=== PATIENT | female | born 1965 | race Caucasian/White ===

== ENCOUNTER → 2017-02-04 | Outpatient (CLI) | payer OTHER ==
[2017-02-04 13:34] LABS: BLOOD UREA NITROGEN 9 mg/dl (7-18); BUN/CREATININE RATIO 12.6 (10-20); CALCIUM 8.4 mg/dl (8.5-10.1); CARBON DIOXIDE 27 mmol/L (21-32); CHLORIDE 104 mmol/L (98-107); CREATININE 0.73 mg/dl (0.60-1.20); GLUCOSE 96 mg/dl (70-99); POTASSIUM 4.2 mmol/L (3.5-5.1); SODIUM 139 mmol/L (136-145)
[2017-02-04 13:37] LABS: CHOLESTEROL 226 mg/dl (0-200); HDL CHOLESTEROL 75 mg/dl; LDL CHOLESTEROL CALCULATED 123 mg/dl; TRIGLYCERIDES 138 mg/dl (0-150); VERY LOW DENSITY LIPOPROT CALC 28 mg/dl
== END | disposition home or self-care (01) ==
LOC: C.LABPVFM 08:28
PROVIDERS: ATTEND Family Medicine
DX: Z13.1 Encounter for screening for diabetes mellitus (principal); E78.5 Hyperlipidemia, unspecified

== ENCOUNTER → 2017-07-26 | Outpatient (CLI) | payer OTHER ==
--- NOTE | 2017-07-26 15:48 | MAMMOGRAPHY REPORT ---
BILATERAL DIGITAL SCREENING MAMMOGRAM TOMOSYNTHESIS WITH CAD: 07/26/2017 CLINICAL HISTORY: Routine screening. Patient has no complaints. TECHNIQUE: Breast tomosynthesis in addition to standard 2D mammography was performed. Current study was also evaluated with a Computer Aided Detection (CAD) system. COMPARISON: Comparison is made to exams dated: 07/25/2016 mammogram, 12/23/2014 ultrasound, 08/25/2014 m ammogram, 08/25/2014 ultrasound, 08/09/2014 mammogram, and 08/07/2013 mammogram - [facility]. BREAST COMPOSITION: There are scattered areas of fibroglandular density in both breasts. FINDINGS: No suspicious masses, calcifications, or areas of architectural distortion are noted in ei ther breast. There has been no significant interval change compared to prior exams. IMPRESSION: ACR BI-RADS CATEGORY 1: NEGATIVE There is no mammographic evidence of malignancy. A 1 year screening mammogram is recommended. The pa tient will receive written notification of the results. Approximately 10% of breast cancers are not detected with mammography. A negative mammographic report should not delay biopsy if a clinically suggestive mass is present. Alana Mejia M.D. /:07/26/2017 08:46:24 Machine Set Up Technician: Franchesca Pan, [facility] letter sent: Normal 1/2 BI-RADS Code: ACR BI-RADS Category 1: Negative
== END | disposition home or self-care (01) ==
LOC: C.MAMM 08:18
PROVIDERS: ATTEND Obstetrics & Gynecology
DX: Z12.31 Encounter for screening mammogram for malignant neoplasm of breast (principal)

== ENCOUNTER 2019-06-18 16:10 | Inpatient (IN) ==
[2019-06-18] MEDS ORDERED: NITROGLYCERIN 2% OINTMENT 30GM TUBE EXT STA (16:30)
--- NOTE | 2019-06-18 16:48 | XRay Report ---
XR chest 1V portable CLINICAL HISTORY: Chest pain. COMPARISON STUDY: Chest CT May 05, 2019. FINDINGS: Lung volumes are normal. Lungs are clear. There is no pneumothorax or pleural effusion. Car diac size is normal. Mediastinal contours are normal. There is no evidence for pulmonary edema. IMPRESSION: No acute cardiopulmonary findings. Electronically signed by: Dimitri Ortega M.D. 06/18/2019 4:46 PM
[2019-06-18 17:03] LABS: Basophils # (auto) 0.03 K/uL (0-0.2); Basophils % (auto) 0.5 %; Eosinophils # (auto) 0.13 K/uL (0-0.5); Hematocrit (blood only) 37.3 % (37-47); Hemoglobin 13.3 g/dL (12.0-16.0); Lymphocytes % (auto) 32.7 %; Mean Corpuscular Hemoglobin 31.6 pg (25-34); Mean Corpuscular Hgb Conc 35.7 g/dL (32-36); Mean Corpuscular Volume 88.6 fL (80-100); Mean Platelet Volume 9.4 fL (7.4-10.4); Monocytes # (auto) 0.39 K/uL (0.11-0.59); Monocytes % (auto) 6.1 %; Neutrophils # (auto) 3.78 K/uL (1.4-6.5); Neutrophils % (auto) 58.7 %; Platelet Count 271 K/uL (130-400); RDW Coefficient of Variation 12.4 % (11.5-14.5); RDW Standard Deviation 39.3 fL (36.4-46.3); Red Blood Count 4.21 M/uL (4.2-5.4); White Blood Count 6.43 K/uL (4.8-10.8)
[2019-06-18 17:20] LABS: Albumin Level 4.3 gm/dl (3.4-5.0); BUN Creatinine Ratio 18.4 (10-20); Calcium 9.2 mg/dl (8.5-10.1); Creatinine Clr Calc Pharmacy 72.4 ml/min; Est GFR (African American) 99.8; Est GFR (Non-African American) 86.1; Potassium 3.5 mmol/L (3.5-5.1)
[2019-06-18 17:22] LABS: Albumin Globulin Ratio 1.3 (0.9-2); Bilirubin,Total 0.4 mg/dl (0.2-1); Globulin 3.3 gm/dl (2.5-4.0); Total Protein 7.6 gm/dl (6.4-8.2)
[2019-06-18 17:33] LABS: Partial Thromboplastin Ratio 0.9; Partial Thromboplastin Time 24.2 Seconds (21.0-31.0); Prothrombin Time 10.4 Seconds (9.0-12.0)
--- NOTE | 2019-06-18 17:55 | Ultrasound Report ---
RIGHT LOWER EXTREMITY VENOUS DOPPLER CLINICAL HISTORY: Right thigh pain. COMPARISON STUDY: No previous studies for comparison. TECHNIQUE: Sonography of the deep venous system of the right lower extremity was performed. Compress ion and augmentation were evaluated. FINDINGS: The right common femoral, superficial femoral and popliteal veins were compressible. Augme ntation was normal. Flow was shown within the deep calf vessels. IMPRESSION: No evidence of deep venous thrombus within the right lower extremity. Electronically signed by: Dimitri Ortega M.D. 06/18/2019 5:53 PM
[2019-06-18] MEDS ORDERED: Heparin IV Low Dose WITH Bolus IV STA (18:14)
[2019-06-18] MEDS ORDERED: HEPARIN SODIUM/DEXTROSE 25,000 UNITS/500 ML BAG IV SCH (18:15)
[2019-06-18] MEDS ORDERED: HEPARIN SOD 5,000 UNIT/0.5 ML VIAL ONE (18:30)
[2019-06-18] MEDS ORDERED: Heparin IV BOLUS 0 units in Syringe 0 mL IV ONE (19:00)
--- NOTE | 2019-06-18 19:44 | History & Physical Report ---
Date of Service June 18, 2019 Assessment & Plan (1) Chest pain: Concerning for ACS given recent STEMI, may be a stent issue ED spoke with Dr. Robles who recs for heparin drip and cath in AM Trop neg x1, serials pending EKG with T wave inversions Holding plavix Recent CTA neg for PE LE US in ED neg for DVT ECHO just done yesterday, will not repeat at this time Noted for CHF, continue lasix (2) GERD (gastroesophageal reflux disease): No hx of GERD, was started on ranitidine for chest pain earlier this summer Will d/c this medication (3) DVT prophylaxis: SCDs, heparin drip History of Present Illness Primary Care Provider: Luis Fernando Arenas, DO 53 y/o F c/o chest pain. Pt states she has been having chest pain all summer. She was started on ranitidine initially, however this was not helpful. Her chest pain continued to worsen and she ultimately ended up admitted to [place] for a cath for a STEMI on 06/06. She had a stent placed in her LAD. She felt great after this. She was d/c'd on 06/08 and did well until 06/12 when she started to have ZELAYA. This progressed to any exertion and on 06/15 she started to have chest pain again. This pain was substernal as her prior chest pain had been, but it was coming and going spontaneously whereas her other chest pain ended up being constant. It is stabbing in nature and nonradiating. She was seen in the ED at [facility]. CTA and cardiac work up was done, all of which were neg. 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 She had an ECHO in the office which showed new CHF. She was started on lasix yesterday for this. She has continued to have sx that are no worse, but no better. Pt denies fever, abd pain, v/c/d, LE pain or swelling. She had some double vision today and felt like "my head was in a cloud, like I had a head cold". She states she was nauseated in the ED today when she had to lie flat for LE US, but no other nausea. Allergies Allergy/AdvReac Type Severity Reaction Status Date / Time pineapple Allergy Severe throat Verified 05/12/19 08:28 swells up naproxen [From Aleve] Allergy Mild throat Unverified 05/12/19 08:28 swells/hives Penicillins Allergy Mild Hives Unverified 05/12/19 08:28 Home Medications Home Medications Medication Instructions Recorded Confirmed Type atorvastatin 80 mg PO HS 06/18/19 06/18/19 History clopidogrel 75 mg PO QAM 06/18/19 06/18/19 History coenzyme Q10 [CoQ-10] 30 mg PO HS 06/18/19 06/18/19 History furosemide 40 mg PO DAILY 06/18/19 06/18/19 History lisinopril 5 mg PO QAM 06/18/19 06/18/19 History metoprolol tartrate 25 mg PO BID 06/18/19 06/18/19 History nitroglycerin 0.4 mg SUBLINGUAL UD 06/18/19 06/18/19 History omega 1-[id number]-[id number]-fish oil [Fish Oil] 2 cap PO DAILY 06/18/19 06/18/19 History ranitidine HCl 150 mg PO QAM 06/18/19 06/18/19 History Past Med/Surg History Medical History Urethral diverticulum Excision of Urethral Diverticulum Dyslipidemia (Chronic) GERD (gastroesophageal reflux disease) (Chronic) Surgical History Hx of lithotripsy 1993 Status post hysteroscopic ablation of endometrium 08/19/[address] Gee History of (Resolved) Family History Father Family history of cardiac disorder Myocardial infarction Mother Family history of breast cancer Family history of cardiac disorder Myocardial infarction Brother Family history of alcohol abuse Family history of cardiac disorder Family history of depression Grandmother (Maternal) Family history of breast cancer Other Coronary heart disease Heart disease Hypertension Social History Preferred Language: Thai Communication Ability: Effective Hearing Ability: Normal marital status: Current Living Situation: Spouse current occupational status: employed Feels Safe at Home: Yes Smoking Status: Never smoker Hx Alcohol Use: Yes (2 glasses of wine most nights, however only twice since recent issues) Hx Substance Use: No Review of Systems Review of Systems: Pertinent positives and negatives reviewed in HPI--all others negative Physical Exam Constitutional: WD/WN, vitals as above Eyes: normal visual berry by confrontation and + anicteric sclerae Neck: normal visual inspection and trachea midline Respiratory: normal respiratory effort, lungs clear to auscultation Cardiovascular: Rate/Rhythm: regular rate and regular rhythm Gastrointestinal (Abdomen): Inspection/Auscultation: abdomen not distended Percussion/Palpation: abdomen soft; abdomen nontender Musculoskeletal: Head/Neck/Chest: normocephalic and head atraumatic negative for edema, peripheral pulses intact Skin: no rashes, warm and dry Neurologic: awake; not confused Speech / Cognition: normal speech Psychiatric: A+Ox3, euthymic affect Results & Data Vital Signs (Past 12 Hours) Vital Signs Temp Pulse Pulse Resp BP BP Pulse Ox 06/18/19 18:38 66 18 94/50 L 97 06/18/19 17:00 66 18 100/61 98 06/18/19 16:13 36.7 C 71 20 121/77 99 Diagnostic Findings CXR: neg for acute R LE US: neg for DVT ECG Findings: + T-wave inversion Code Status & VTE Plan Code Status Full code VTE Prophylaxis Plan VTE Prophylaxis will be ordered: Yes PG Care Time/CCT Total # of Minutes Spent Total Time Spent with Patient: Total time spent is greater than 50% in coordination of care (as documented) at patient's floor/unit and/or counseling patient:
[2019-06-18] MEDS ORDERED: fentaNYL citrate 100 MCG/2 ML VIAL IV STA (20:17)
[2019-06-18] MEDS ORDERED: ONDANSETRON INJ 2 MG/ML 2 ML VIAL IV STA (20:17)
[2019-06-18] MEDS ORDERED: SODIUM CHLORIDE 0.9% 250 ML IV ONE (20:17)
[2019-06-18 20:41] LABS: Creatine Kinase 83 U/L (26-192); Troponin I < 0.015 ng/ml (0-0.045)
[2019-06-18] MEDS ORDERED: NITROGLYCERIN SL 0.4 MG/TAB TAB SL SCH (21:23)
[2019-06-18] MEDS ORDERED: ALUMINUM/MAGNESIUM SUSP 18 ML, LIDOCAINE HCL VISCOUS 2% 6 ML, BARCODE IDENTIFIER 1 EA PO ONE (21:23)
[2019-06-18] MEDS ORDERED: ONDANSETRON INJ 2 MG/ML 2 ML VIAL IV PRN (21:23)
[2019-06-18] MEDS ORDERED: MAGNESIUM HYDROXIDE SUSP 30 ML UDC PO PRN (21:23)
--- NOTE | 2019-06-18 21:54 | Emergency Department Note ---
Entered by Nadiya Hawk acting as a scribe for History of Present Illness General Chief complaint: Chest Pain Stated complaint: CHEST PAIN, PRESSURE, TINGLING HANDS, SOB- <3 HX History of Present Illness Onset (ago): day(s) 3 Location: chest Radiation: other (Left shoulder) Pain Consistency: + constant Maximum Pain Intensity: 4 Current Pain Intensity: 4 Relieved By: + none Exacerbated By: + other (Exertion) Associated symptoms: + cough (+cold symptoms) and + other (+numbness/tingling in bilateral arms) Treatments prior to arrival: none The patient is a 53 year old female who presents to the ED with complaints of chest pain for the past few days. She rates her pain as a 4/10 in severity and states the pain feels sharp in nature. The pain has occasionally radiated into her left shoulder. She complains of shortness of breath with exertion and notes her pain is worse with exertion. She has also experienced tingling in both [place] nds. She experienced an ME 12 days ago and had 1 stent placed in the LAD at [facility]. 4 days ago, she was readmitted to the hospital for a possible PE. She had a chest CT that was negative for a clot. She had chest pain yesterday and had an echocardiogram at her doctor's office. She was found to be in heart failure and states she was started on Lasix. The patient denies recent cough and cold symptoms. She developed chest pain today and was advised by her finish filer to go to nearest hospital. Home Medications Home Medications Medication Instructions Recorded Confirmed Type atorvastatin 80 mg PO HS 06/18/19 06/18/19 History clopidogrel 75 mg PO QAM 06/18/19 06/18/19 History coenzyme Q10 [CoQ-10] 30 mg PO HS 06/18/19 06/18/19 History furosemide 40 mg PO DAILY 06/18/19 06/18/19 History lisinopril 5 mg PO QAM 06/18/19 06/18/19 History metoprolol tartrate 25 mg PO BID 06/18/19 06/18/19 History nitroglycerin 0.4 mg SUBLINGUAL UD 06/18/19 06/18/19 History omega [id number] oil [Fish Oil] 2 cap PO DAILY 06/18/19 06/18/19 History ranitidine HCl 150 mg PO QAM 06/18/19 06/18/19 History Allergies Allergy/AdvReac Type Severity Reaction Status Date / Time pineapple Allergy Severe throat Verified 05/12/19 08:28 swells up naproxen [From Aleve] Allergy Mild throat Unverified 05/12/19 08:28 swells/hives Penicillins Allergy Mild Hives Unverified 05/12/19 08:28 Past Med/Surg History Medical History Urethral diverticulum Excision of Urethral Diverticulum Dyslipidemia (Chronic) GERD (gastroesophageal reflux disease) (Chronic) Surgical History Hx of lithotripsy 1993 Status post hysteroscopic ablation of endometrium 08/19/[address] 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 and A total of 10 systems reviewed and were otherwise negative Physical Exam Vital Signs Vital Signs - 24 hr 06/18/19 16:13 06/18/19 17:00 06/18/19 17:16 Temperature 36.7 C Temperature Source Oral Sepsis Recent Fever Within 48 Hours No Sepsis New/Unexplained Change in Mental Status No Sepsis Action Taken by Nursing No Action Required Pulse Rate 71 60 60 Pulse Rate [Apical] 66 Pulse Rate from SpO2 Sensor 60 59 L Pulse Rhythm Regular Pulse Rhythm [Apical] Regular Pulse Strength Normal Respiratory Rate 20 19 20 Respiratory Effort / Characteristics Non-Labored Spontaneous Non-Labored Spontaneous Respiratory Depth Normal Normal Respiratory Pattern Regular Regular Blood Pressure 121/77 100/61 Blood Pressure [Left Arm] 100/61 Blood Pressure Mean 91 74 Blood Pressure Mean [Left Arm] 74 Blood Pressure Position Sitting Pulse Oximetry 99 100 99 Oxygen Delivery Method Room Air Room Air 06/18/19 17:20 06/18/19 18:00 06/18/19 18:10 Temperature Temperature Source Sepsis Recent Fever Within 48 Hours Sepsis New/Unexplained Change in Mental Status Sepsis Action Taken by Nursing Pulse Rate 64 67 69 Pulse Rate [Apical] Pulse Rate from SpO2 Sensor 63 Pulse Rhythm Pulse Rhythm [Apical] Pulse Strength Respiratory Rate 15 12 13 Respiratory Effort / Characteristics Respiratory Depth Respiratory Pattern Blood Pressure Blood Pressure [Left Arm] Blood Pressure Mean Blood Pressure Mean [Left Arm] Blood Pressure Position Pulse Oximetry 99 Oxygen Delivery Method 06/18/19 18:20 06/18/19 18:30 06/18/19 18:38 Temperature Temperature Source Sepsis Recent Fever Within 48 Hours Sepsis New/Unexplained Change in Mental Status Sepsis Action Taken by Nursing Pulse Rate 72 61 67 Pulse Rate [Apical] 66 Pulse Rate from SpO2 Sensor 66 Pulse Rhythm Pulse Rhythm [Apical] Regular Pulse Strength Respiratory Rate 18 19 14 Respiratory Effort / Characteristics Non-Labored Spontaneous Respiratory Depth Normal Respiratory Pattern Regular Blood Pressure 94/50 L Blood Pressure [Left Arm] 94/50 L Blood Pressure Mean 64 Blood Pressure Mean [Left Arm] 64 Blood Pressure Position Pulse Oximetry 97 Oxygen Delivery Method Room Air 06/18/19 18:40 06/18/19 18:50 06/18/19 19:00 Temperature Temperature Source Sepsis Recent Fever Within 48 Hours Sepsis New/Unexplained Change in Mental Status Sepsis Action Taken by Nursing Pulse Rate 70 64 70 Pulse Rate [Apical] Pulse Rate from SpO2 Sensor 71 64 71 Pulse Rhythm Pulse Rhythm [Apical] Pulse Strength Respiratory Rate 12 14 15 Respiratory Effort / Characteristics Respiratory Depth Respiratory Pattern Blood Pressure 90/65 L Blood Pressure [Left Arm] Blood Pressure Mean 73 Blood Pressure Mean [Left Arm] Blood Pressure Position Pulse Oximetry 98 98 98 Oxygen Delivery Method 06/18/19 19:10 06/18/19 19:20 06/18/19 19:30 Temperature Temperature Source Sepsis Recent Fever Within 48 Hours Sepsis New/Unexplained Change in Mental Status Sepsis Action Taken by Nursing Pulse Rate 66 73 65 Pulse Rate [Apical] Pulse Rate from SpO2 Sensor 68 71 65 Pulse Rhythm Pulse Rhythm [Apical] Pulse Strength Respiratory Rate 14 15 15 Respiratory Effort / Characteristics Respiratory Depth Respiratory Pattern Blood Pressure 94/65 L Blood Pressure [Left Arm] Blood Pressure Mean 74 Blood Pressure Mean [Left Arm] Blood Pressure Position Pulse Oximetry 98 98 97 Oxygen Delivery Method Constitutional: Vital signs reviewed. Eyes: Pupils are equal round reactive to light. Conjunctiva are noninjected. ENT: Pharynx is clear without erythema or exudate. Mucous membranes are moist. Neck supple without meningeal signs. Respiratory: Clear to auscultation bilaterally. Breath sounds are equal bilaterally. Cardiovascular: Regular rate and rhythm. No rubs or gallops. GI: Soft, nondistended and nontender. Bowel sounds are present. Musculoskeletal: No peripheral edema. No lower extremity tenderness. Integumentary: No cyanosis. Neurological: The patient is awake and alert. No focal deficits. Psychiatric: Normal affect. Course 162: The patient was evaluated in room B10 and a complete history and physical were performed. 1705: I reevaluated the patient. She is still having mild chest discomfort and has not received Nitro yet. A Troponin is pending. 1735: I received reports from [place] from 06/06. The cardiac catheterization showed normal coronary arteries except the LAD that showed enlarged thrombus that was stented. 1808: I reevaluated the patient. She is not having any chest pain at the moment. 1809: I discussed the patients case with Dr. Hong, [facility] Cardiology. He recommends she be placed on Heparin and she will most likely be catheterized tomorrow. 1810: I reevaluated the patient. She is resting comfortably. I discussed her results and my recommendation she remain in the hospital for further evaluation and management and she is agreeable with the plan. 1817: I discussed the patients case with Dr. Navarrete, [facility] Hospitalist. The patient will be further evaluated. 2014: I reevaluated the patient. She states she felt lightheaded. Her pressure was 85 systolic, a repeat pressure is 105. She is experiencing chest pressure that she rates as a 4/10. I repeated an EKG that shows a normal sinus rhythm, rate of 66, no PVC and persistent T-wave inversions. I spoke to Dr. Rock. She is assessing the patient now. She is requesting Fentanyl and Zofran and repeat Cardiac biomarkers. The patient will be taken upstairs. Consultations Consultation #1: I discussed the patients case with Dr. Hong, [facility] Cardiology. He recommends she be placed on Heparin and she will most likely be catheterized tomorrow. Time: 18:09 Consultation #2: I discussed the patients case with Dr. Navarrete, [facility] Hospitalist. The patient will be further evaluated Time: 18:17 Administered Medications Heparin Sodium/Dextrose (Heparin Sodium/Dextrose) 25,000 units in 500 mls @ 13 mls/hr IV .Q24H [place]; Protocol Stop: 07/18/19 18:14 Last Admin: 06/18/19 18:33 Dose: 650 units/hr, 13 mls/hr Documented by: [id number] Cosigned by: [id number] Discontinued Medications Fentanyl Citrate (Fentanyl Citrate) 25 mcg IV NOW STA Stop: 06/18/19 20:18 Last Admin: 06/18/19 20:34 Dose: 25 mcg Documented by: [id number] Heparin Sodium (Porcine) (Heparin Sodium (Porcine)) Confirm Administered Dose 5,000 units .ROUTE .STK-MED ONE Stop: 06/18/19 18:31 Last Admin: 06/18/19 18:32 Dose: 3,000 units Documented by: [id number] Cosigned by: [id number] Heparin Sodium/Dextrose () 1 ea IV NOW STA; Protocol Stop: 06/18/19 18:15 Last Admin: 06/18/19 18:33 Dose: Not Given Documented by: [id number] Heparin Sodium (Porcine) 3,000 (units/ Syringe) 3 mls @ 10 mls/min IV NOW ONE Stop: 06/18/19 19:01 Last Admin: 06/18/19 18:55 Dose: Not Given Documented by: [id number] Sodium Chloride (Nss) 250 mls @ 999 mls/hr IV .Q16M ONE Stop: 06/18/19 20:32 Last Infusion: 06/18/19 20:52 Dose: 0 mls/hr Documented by: [id number] Admin: 06/18/19 20:34 Dose: 999 mls/hr Documented by: [id number] Nitroglycerin (Nitro-Bid 2%) 0.5 inch EXT NOW STA Stop: 06/18/19 16:31 Last Admin: 06/18/19 17:14 Dose: 0.5 inch Documented by: [id number] Ondansetron HCl (Zofran) 4 mg IV NOW STA Stop: 06/18/19 20:18 Last Admin: 06/18/19 20:34 Dose: 4 mg Documented by: [id number] Medical Decision Making Differential Diagnosis The differential diagnoses considered include unstable angina, ME, PE, pleurisy, pericarditis, Татьяна syndrome. Medical Records Attestation: I reviewed the patient's medical records. I did perform a limited focused review of portions of the patient's old chart on the electronic medical record. The patient was seen by her PCP for chest pain in April of 2019 and had a negative stress test. Home Medications Current Medication List: was personally reviewed by me Laboratory Data Attestation: I reviewed the patient's lab results. Result diagrams: 06/18/19 16:49 06/18/19 16:49 Lab Results 06/18/19 06/18/19 06/18/19 Range/Units 16:49 16:49 16:49 WBC 6.43 (4.8-10.8) K/uL RBC 4.21 (4.2-5.4) M/uL Hgb 13.3 (12.0-16.0) g/dL Hct 37.3 (37-47) % MCV 88.6 (80-100) fL MCH 31.6 (25-34) pg MCHC 35.7 (32-36) g/dL RDW Std Deviation 39.3 (36.4-46.3) fL RDW Coeff of Lalo 12.4 (11.5-14.5) % Plt Count 271 (130-400) K/uL MPV 9.4 (7.4-10.4) fL Immature Gran % (Auto) 0.0 % Neut % (Auto) 58.7 % Lymph % (Auto) 32.7 % Bennett % (Auto) 6.1 % Eos % (Auto) 2.0 % Baso % (Auto) 0.5 % Immature Gran # (Auto) 0.00 (0.00-0.02) K/uL Neut # (Auto) 3.78 (1.4-6.5) K/uL Lymph # (Auto) 2.10 (1.2-3.4) K/uL Bennett # (Auto) 0.39 (0.11-0.59) K/uL Eos # (Auto) 0.13 (0-0.5) K/uL Baso # (Auto) 0.03 (0-0.2) K/uL ESR (0-21) mm/hr PT 10.4 (9.0-12.0) Seconds INR 1.0 (0.9-1.1) APTT 24.2 (21.0-31.0) Seconds PTT Ratio 0.9 Sodium 139 (136-145) mmol/L Potassium 3.5 (3.5-5.1) mmol/L Chloride 102 (98-107) mmol/L Carbon Dioxide 31 (21-32) mmol/L Anion Gap 6.0 (3-11) BUN 14 (7-18) mg/dl Creatinine 0.79 (0.6-1.2) mg/dl Est Cr Clr Drug Dosing 72.4 ml/min Est GFR ( Amer) 99.8 Est GFR (Non-Af Amer) 86.1 BUN/Creatinine Ratio 18.4 (10-20) Glucose 79 (70-99) mg/dl Calcium 9.2 (8.5-10.1) mg/dl Total Bilirubin 0.4 (0.2-1) mg/dl AST 20 (15-37) U/L ALT 41 (12-78) U/L Alkaline Phosphatase 69 (45-117) U/L Total Creatine Kinase (26-192) U/L CK-MB (CK-2) (0.5-3.6) ng/ml CK/CKMB % Calc (0-3.0) POC Troponin I (0-0.045) ng/ml Troponin I (0-0.045) ng/ml C-Reactive Protein (0-0.29) mg/dl Total Protein 7.6 (6.4-8.2) gm/dl Albumin 4.3 (3.4-5.0) gm/dl Globulin 3.3 (2.5-4.0) gm/dl Albumin/Globulin Ratio 1.3 (0.9-2) 06/18/19 06/18/19 06/18/19 Range/Units 16:49 16:49 16:49 WBC (4.8-10.8) K/uL RBC (4.2-5.4) M/uL Hgb (12.0-16.0) g/dL Hct (37-47) % MCV (80-100) fL MCH (25-34) pg MCHC (32-36) g/dL RDW Std Deviation (36.4-46.3) fL RDW Coeff of Lalo (11.5-14.5) % Plt Count (130-400) K/uL MPV (7.4-10.4) fL Immature Gran % (Auto) % Neut % (Auto) % Lymph % (Auto) % Bennett % (Auto) % Eos % (Auto) % Baso % (Auto) % Immature Gran # (Auto) (0.00-0.02) K/uL Neut # (Auto) (1.4-6.5) K/uL Lymph # (Auto) (1.2-3.4) K/uL Bennett # (Auto) (0.11-0.59) K/uL Eos # (Auto) (0-0.5) K/uL Baso # (Auto) (0-0.2) K/uL ESR 10 (0-21) mm/hr PT (9.0-12.0) Seconds INR (0.9-1.1) APTT (21.0-31.0) Seconds PTT Ratio Sodium (136-145) mmol/L Potassium (3.5-5.1) mmol/L Chloride (98-107) mmol/L Carbon Dioxide (21-32) mmol/L Anion Gap (3-11) BUN (7-18) mg/dl Creatinine (0.6-1.2) mg/dl Est Cr Clr Drug Dosing ml/min Est GFR ( Amer) Est GFR (Non-Af Amer) BUN/Creatinine Ratio (10-20) Glucose (70-99) mg/dl Calcium (8.5-10.1) mg/dl Total Bilirubin (0.2-1) mg/dl AST (15-37) U/L ALT (12-78) U/L Alkaline Phosphatase (45-117) U/L Total Creatine Kinase 83 (26-192) U/L CK-MB (CK-2) 2.0 (0.5-3.6) ng/ml CK/CKMB % Calc 2.4 (0-3.0) POC Troponin I (0-0.045) ng/ml Troponin I < 0.015 (0-0.045) ng/ml C-Reactive Protein < 0.29 (0-0.29) mg/dl Total Protein (6.4-8.2) gm/dl Albumin (3.4-5.0) gm/dl Globulin (2.5-4.0) gm/dl Albumin/Globulin Ratio (0.9-2) 06/18/19 Range/Units 17:01 WBC (4.8-10.8) K/uL RBC (4.2-5.4) M/uL Hgb (12.0-16.0) g/dL Hct (37-47) % MCV (80-100) fL MCH (25-34) pg MCHC (32-36) g/dL RDW Std Deviation (36.4-46.3) fL RDW Coeff of Lalo (11.5-14.5) % Plt Count (130-400) K/uL MPV (7.4-10.4) fL Immature Gran % (Auto) % Neut % (Auto) % Lymph % (Auto) % Bennett % (Auto) % Eos % (Auto) % Baso % (Auto) % Immature Gran # (Auto) (0.00-0.02) K/uL Neut # (Auto) (1.4-6.5) K/uL Lymph # (Auto) (1.2-3.4) K/uL Bennett # (Auto) (0.11-0.59) K/uL Eos # (Auto) (0-0.5) K/uL Baso # (Auto) (0-0.2) K/uL ESR (0-21) mm/hr PT (9.0-12.0) Seconds INR (0.9-1.1) APTT (21.0-31.0) Seconds PTT Ratio Sodium (136-145) mmol/L Potassium (3.5-5.1) mmol/L Chloride (98-107) mmol/L Carbon Dioxide (21-32) mmol/L Anion Gap (3-11) BUN (7-18) mg/dl Creatinine (0.6-1.2) mg/dl Est Cr Clr Drug Dosing ml/min Est GFR ( Amer) Est GFR (Non-Af Amer) BUN/Creatinine Ratio (10-20) Glucose (70-99) mg/dl Calcium (8.5-10.1) mg/dl Total Bilirubin (0.2-1) mg/dl AST (15-37) U/L ALT (12-78) U/L Alkaline Phosphatase (45-117) U/L Total Creatine Kinase (26-192) U/L CK-MB (CK-2) (0.5-3.6) ng/ml CK/CKMB % Calc (0-3.0) POC Troponin I 0.03 (0-0.045) ng/ml Troponin I (0-0.045) ng/ml C-Reactive Protein (0-0.29) mg/dl Total Protein (6.4-8.2) gm/dl Albumin (3.4-5.0) gm/dl Globulin (2.5-4.0) gm/dl Albumin/Globulin Ratio (0.9-2) Imaging Data Radiologist's Impression: Radiology results as stated below per my review and the radiologist's interpretation: RIGHT LOWER EXTREMITY VENOUS DOPPLER CLINICAL HISTORY: Right thigh pain. COMPARISON STUDY: No previous studies for comparison. TECHNIQUE: Sonography of the deep venous system of the right lower extremity was performed. Compression and augmentation were evaluated. FINDINGS: The right common femoral, superficial femoral and popliteal veins were compressible. Augmentation was normal. Flow was shown within the deep calf vessels. IMPRESSION: No evidence of deep venous thrombus within the right lower extremity. Electronically signed by: Dimitri Ortega M.D. 06/18/2019 5:53 PM XR chest 1V portable CLINICAL HISTORY: Chest pain. COMPARISON STUDY: Chest CT May 05, 2019. FINDINGS: Lung volumes are normal. Lungs are clear. There is no pneumothorax or pleural effusion. Cardiac size is normal. Mediastinal contours are normal. There is no evidence for pulmonary edema. IMPRESSION: No acute cardiopulmonary findings. Electronically signed by: Dimitri Ortega M.D. 06/18/2019 4:46 PM ECG Data Attestation: I personally reviewed and interpreted this ECG as follows: Indication: chest pain Rate (beats per minute): 60 Rhythm: normal sinus Findings: + other (Biphasic T-waves inferiorly) and + T-wave inversion (in leads V1 to V6, and high lateral leads); no ST elevation Comparison ECG Date: from (05/05/19) Change: the following changes noted (T-wave inversions are new compared to previous) Additional Comments: 2nd EKG on 06/18/19: Normal sinus rhythm, rate of 67, persistent T-wave inversions in the precordial and inferior leads, less prominent than on prior EKG. Blood Pressure Blood Pressure Findings: Elevated blood pressure Blood Pressure Disposition: further management by hospitalist MDM Narrative I did evaluate the patient as noted above. The patient has had a recent ME with stent placement 12 days ago. She is now presenting with recurrent chest pain. She did have an echocardiogram yesterday at her finish filer's office and was told that she had evidence of heart failure was placed on Lasix. IV access was established. 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 I did order and personally review the patient's 12-lead EKG as described above. She has significant T wave inversions as noted above. She did state on her last EKG she was told she had T wave inversions but does not have a copy of it. I did obtain records from [facility] but they were not able to send us a copy of the most recent EKGs. I did get her cath reports which showed angiographically normal coronary arteries except in the LAD where she had 99% stenosis. I did order and personally reviewed the images of the patient's chest x-ray as described above. There is no evidence of vascular congestion or CHF. I did o rder and review the patient's blood work as noted in the electronic medical record. Her white count is normal. She is not anemic. Troponin is negative. ESR and CRP are negative. I did order an ultrasound of the right lower extremity as she complained of some right thigh pain. I did review the images myself as well as the radiology report as described above. There is no evidence of DVT. The patient did take aspirin today. I did give her nitroglycerin paste half inch to the anterior chest wall. She had complete resolution of her chest discomfort. I did repeat a twelve-lead EKG which per my interpretation shows persistent T wave inversions as noted above although less prominent than the prior EKG done today. I did recommend hospitalization for further evaluation. I did discuss the case with the finish filer on-call who recommended she be placed on heparin and he will perform catheterization tomorrow. I did discuss this with the patient and her family. She was agreeable to the heparin. She was started on a heparin drip and given a bolus IV. While waiting for her bed she developed lightheadedness and had a blood pressure of 85. I did go to assess her and her blood pressure did improve spontaneously. She stated that she had some chest pressure and a repeat EKG was obtained. This showed no significant change and showed persistent T wave inversions no ST elevations. As the patient was already admitted in about to go upstairs I did discuss the case with Dr. Rock. She did assess the patient here in the emergency department and recommended that we give her IV fentanyl and check cardiac biomarkers. She did feel the patient could be transferred to the floor. I did treat her with fentanyl 50 mcg IV and Zofran IV. I did repeat a troponin as well as CK and CK- MB which were all normal. Impression & Plan Unstable angina Critical Care Time Critical Care Time: Yes Total Critical Care Time: 40 I have personally spent 40 minutes of critical care time in the direct management of this patient. This includes bedside care, interpretation of diagnostic studies, and testing, discussion with consultants, patient, and family members, and other required patient management activities. This 40 minutes is in excess of all separately billable procedures. Discharge Plan Visit Data *Final* Discharge Date/Time: 06/18/19 20:58 Chief Complaint: Chest Pain Stated Complaint: CHEST PAIN, PRESSURE, TINGLING HANDS, SOB- <3 HX ED Provider: Jass Ring Discharge Problem: Unstable angina Patient Disposition: Admitted As Inpatient Discharge Instructions Interventions: ED Discharge Assessment Last Done: 06/18/19 20:58 The scribe's documentation has been prepared under my direction and personally reviewed by me in its entirety. I confirm that the note above accurately reflects all work, treatment, procedures, and medical decision making performed by me.
[2019-06-18] MEDS: D5NSS + 20MEQ KCL 20 MEQ/1,000 ML BAG IV SCH (21:56)
[2019-06-18] MEDS: ATORVASTATIN 40 MG TAB PO SCH (21:57)
[2019-06-18] MEDS: METOPROLOL TARTRATE 25 MG TAB PO SCH (22:00)
[2019-06-19 01:01] LABS: Partial Thromboplastin Ratio 1.5
[2019-06-19] MEDS ORDERED: HEPARIN IV BOLUS 2,000 UNITS in SYRINGE 0 ML IV ONE (01:15)
[2019-06-19] MEDS: ACETAMINOPHEN 325 MG TAB PO PRN ×3 (01:55→15:08)
[2019-06-19 04:15] LABS: Basophils # (auto) 0.02 K/uL (0-0.2); Basophils % (auto) 0.3 %; Eosinophils # (auto) 0.12 K/uL (0-0.5); Eosinophils % (auto) 1.9 %; Hematocrit (blood only) 32.7 % (37-47); Hemoglobin 11.4 g/dL (12.0-16.0); Immature Granulocytes # (auto) 0.01 K/uL (0.00-0.02); Immature Granulocytes % (auto) 0.2 %; Lymphocytes # (auto) 2.13 K/uL (1.2-3.4); Lymphocytes % (auto) 33.4 %; Mean Corpuscular Hemoglobin 31.1 pg (25-34); Mean Corpuscular Hgb Conc 34.9 g/dL (32-36); Mean Corpuscular Volume 89.1 fL (80-100); Mean Platelet Volume 9.3 fL (7.4-10.4); Monocytes # (auto) 0.42 K/uL (0.11-0.59); Monocytes % (auto) 6.6 %; Neutrophils # (auto) 3.67 K/uL (1.4-6.5); Neutrophils % (auto) 57.6 %; Platelet Count 235 K/uL (130-400); RDW Coefficient of Variation 12.5 % (11.5-14.5); RDW Standard Deviation 40.2 fL (36.4-46.3); Red Blood Count 3.67 M/uL (4.2-5.4); White Blood Count 6.37 K/uL (4.8-10.8)
[2019-06-19] MEDS: D5NSS + 20MEQ KCL 20 MEQ/1,000 ML BAG IV SCH ×2 (06:07→16:55)
[2019-06-19 08:18] LABS: Partial Thromboplastin Ratio 1.8
--- NOTE | 2019-06-19 08:32 | Cardiology Consultation ---
Date of Consultation June 19, 2019 Assessment & Plan (1) CAD (coronary artery disease): Recent LAD PCI with drug-eluting stent in May of 2019 in the setting of STEMI with ruptured plaque and thrombus. She is having several different types of chest pain, some of which are atypical lasting for many days with negative troponins. Given her ECG, ongoing symptoms, and recent PCI, recommended cardiac catheterization to further evaluate prior stent. Risks and benefits were discussed with her in detail. She was made aware that CT surgery is not available at this facility. She was agreeable to undergo angiography and PCI, if deemed appropriate. Continue aspirin 81 mg daily indefinitely. Continue Plavix. (2) Chest pain: Some of her chest pain is atypical but given her recent presentation and similarities, concerning for unstable angina. Plan as above. Currently chest pain-free. (3) S/P coronary artery stent placement: Continue dual anti-platelet therapy for at least a year. Plan as above. (4) Cardiomyopathy: Mildly reduced LV systolic function on echo 2 days ago. Limited echo results pending from earlier this morning. Continue current regimen for now. She appears euvolemic. (5) Unstable angina: As above. (6) Dyslipidemia: Continue high-intensity statin therapy given CAD history. (7) SOB (shortness of breath): Coronary angiography as above. Right heart catheterization also being planned given her shortness of breath. She states that she was told she has heart failure but she does not appear significantly hypervolemic on examination. Her symptoms however are concerning for hypervolemia describing orthopnea. Low-sodium diet. Disposition: Cardiac catheterization pending for later this morning. I will not be in the hospital for the next [address] Aguilar will be available as he is the fire production operator podiatrist assistant. Please call with questions or concerns. Plan of care discussed with her primary podiatrist assistant in [place] as noted above. Highly complex medical issues. Thank you for allowing me to participate in the care of your patient. Please call for any other questions or concerns. Sincerely, Isidro Robles M.D. History of Present Illness Reason for Consultation: Chest Pain Requesting Physician: Dr. Navarrete Attending Physician: Francisco Eden History of Present Illness Mrs. Ram is a very pleasant 53-year-old female with a history significant for CAD status post at proximal LAD STEMI status post PCI in 06/06/2019 at [facility] and dyslipidemia. In April of 2019, she was seen in Cardiology outpatient office by me for chest pain. The chest pain was described as atypical and she underwent stress echo, exercising for nearly 10 minutes on Catracho protocol and negative for ischemia. For recurrent symptoms, she was asked to notify the office for further testing. Unfortunately, she continued to experience symptoms in her symptoms actually worsened, leading up to 06/06/2019 while shopping in [place]. While walking, she experienced chest discomfort lasting for 40 minutes by the time she got to the ER. She was rushed straight to the cardiac catheterization lab based on ECG and had proximal LAD 99% ruptured plaque with MATTHEW 2 flow. She underwent 3 x 33 mm Xience PCI. Her EF was reported as approximately 45%. Following this, she felt quite well and was walking 10,000 steps per day and started playing competitive volleyball again in 1 week later. Unfortunately, she started feeling symptoms described as a drowning sensation and coughing while laying flat. She also had left lateral chest discomfort for 3 seconds or so. She was once again readmitted to [facility] and underwent CT angiogram which was reportedly negative for PE but patient reports that she had enlarged pulmonary artery. She has followed up with her primary podiatrist assistant, Dr. Red of [facility] Cardiology. It was reportedly felt as though Brilinta may have been causing her shortness of breath and therefore she was changed to Plavix just yesterday after being evaluated earlier this week. She also underwent outpatient echo on Saturday, 2 days ago. She was called and told by nursing staff from his office that she had heart failure and was placed on Lasix 40 mg daily which she started that evening and therefore took a total of 2 doses thus far with no improvement of her symptoms. In fact, she continued to feel worse. She has worsening orthopnea and dyspnea with exertion and has been having substernal chest pressure constant since Saturday. She also has had intermittent sharp pain for few seconds at a time in the substernal area which can radiate to her right shoulder blade. She also has intermittent left lateral chest pain. She had labs done on 06/16/2019 with a BNP of 216. She had been on lisinopril 10 mg daily which was reduced to 5 mg daily due to hypotension with systolic blood pressure in 80s and also a cough. With reduction in lisinopril, her cough has improved but remains. She also has continued to take aspirin 81 mg daily and Brilinta without missing a dose until changing over to Plavix yesterday when she took her first dose of 75 mg daily. Yesterday, because she developed worsening symptoms, she called her cardiology office and she was advised to come to the closest ER. Her ECG demonstrated anterior T-wave inversion. She was given nitroglycerin here with improvement of her symptoms. ER physician called last evening and stated that she was chest pain-free. It was advised that she be started on heparin and be admitted for possible cardiac catheterization. She is currently chest pain-free. She denies shortness of breath sitting upright but states she still has orthopnea. She denies fevers, chills, abdominal pain, nausea, vomiting, syncope, near-syncope, palpitations, edema, or bleeding such as melena, hematochezia, or hematuria. A call was placed to Dr. Elliot Red, her primary podiatrist assistant, to discuss her recent care. He returned the call quickly. He updated me on her care in regards to her LAD STEMI and also her recent echo done on 06/17/2019. Her outpatient echo on 06/17/2019 reported distal anteroseptal hypokinesis with an EF of 45%. No significant valve issues. There was type 1 diastolic dysfunction. He states that the EF during her outpatient repeat echo was similar to that found during her hospitalization Earlier this month. She has had the following studies/procedures: 1. Stress echo 05/07/2019: No ischemic changes noted at 93% MPHR. Negative ECG at 93%. Appropriate blood pressure response. 9 minutes 49 seconds Catracho protocol. Resting EF 60-65%. No wall motion abnormalities. No significant diastolic dysfunction. No significant valvular abnormalities. 2. Cardiac catheterization 06/06/2019 [facility]: Proximal LAD 99% acute ruptured plaque with thrombus and MATTHEW 2 flow in mid to distal LAD. EF 45%. Underwent PCI with 3 x 33 mm Xience NETO. No other CAD reported. 3. Echo 06/06/2019 [facility]:Normal left ventricular size and systolic fun ction. EF %. No regional wall motion abnormalities. left ventricular hypertrophy. diastolic dysfunction. Size with severely hypokinetic apex and mid to distal anteroseptum, anterior wall. EF 40-45%. Type 1 diastolic dysfunction. 4. Echo 06/17/2019 [place]: Reported distal anteroseptal hypokinesis. LVEF 45%. Type 1 diastolic dysfunction. No significant valvular abnormalities. Review of systems: As above. Review of systems otherwise negative/unremarkable. Family history: Father with CAD. Brother with CAD and PCI at the age of 49. Social history: She denies tobacco or drug abuse. Occasional alcohol. She is and lives at home with her . She has 2 grown daughters. Grandchildren. 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 Her , Syed, is at the bedside. Allergies Allergy/AdvReac Type Severity Reaction Status Date / Time pineapple Allergy Severe throat Verified 05/12/19 08:28 swells up naproxen [From Aleve] Allergy Mild throat Unverified 05/12/19 08:28 swells/hives Penicillins Allergy Mild Hives Unverified 05/12/19 08:28 Home Medications Home Medications Medication Instructions Recorded Confirmed Type atorvastatin 80 mg PO HS 06/18/19 06/18/19 History clopidogrel 75 mg PO QAM 06/18/19 06/18/19 History coenzyme Q10 [CoQ-10] 30 mg PO HS 06/18/19 06/18/19 History furosemide 40 mg PO DAILY 06/18/19 06/18/19 History lisinopril 5 mg PO QAM 06/18/19 06/18/19 History metoprolol tartrate 25 mg PO BID 06/18/19 06/18/19 History nitroglycerin 0.4 mg SUBLINGUAL UD 06/18/19 06/18/19 History omega 5-des-rfd-fish oil [Fish Oil] 2 cap PO DAILY 06/18/19 06/18/19 History ranitidine HCl 150 mg PO QAM 06/18/19 06/18/19 History Patient History Medical History Urethral diverticulum Excision of Urethral Diverticulum Dyslipidemia (Chronic) GERD (gastroesophageal reflux disease) (Chronic) Surgical History Hx of lithotripsy 1993 Status post hysteroscopic ablation of endometrium 08/19/[address] Gee History of (Resolved) Family History Father Family history of cardiac disorder Myocardial infarction Mother Family history of breast cancer Family history of cardiac disorder Myocardial infarction Brother Family history of alcohol abuse Family history of cardiac disorder Family history of depression Grandmother (Maternal) Family history of breast cancer Other Coronary heart disease Heart disease Hypertension Social History Preferred Language: Yoruba Communication Ability: Effective Hearing Ability: Normal In Home Aide Required: No Beliefs That Will Affect Care: None marital status: Current Living Situation: Family current occupational status: employed Feels Safe at Home: Yes Smoking Status: Never smoker Hx Alcohol Use: Yes Alcohol type: wine Hx Substance Use: No Physical Exam Physical Exam: Gen.: No acute distress. Alert and oriented. HEENT: Anicteric sclera. Neck: No appreciable JVD. No bruits. Normal carotid upstrokes bilaterally. Cardiac: PMI was nondisplaced. No ventricular heave. Regular. Normal S1-S2. No murmurs, rubs, or gallops. Pulmonary: Clear to auscultation bilaterally without wheezes, rales, or rhonchi. Abdomen: Soft, nontender, nondistended, with normoactive bowel sounds. No bruits noted. Extremities: 2+ radial pulses bilaterally. 2+ posterior tibialis pulses bilaterally. No edema or cyanosis. No palpable cords. Psychiatric: Affect appears appropriate. Results & Data Vital Signs (Past 12 Hours) Vital Signs Temp Pulse Pulse Pulse Resp BP BP 06/19/19 07:32 36.5 C 62 16 97/61 L 06/19/19 03:48 36.4 C L 57 L 18 90/43 L 06/18/19 23:22 36.5 C 65 18 06/18/19 21:25 36.6 C 69 18 06/18/19 21:00 56 L 13 98/57 L 06/18/19 20:59 61 15 93/60 L 06/18/19 20:53 61 20 86/58 L 06/18/19 20:50 64 15 06/18/19 20:40 63 18 06/18/19 20:30 67 14 89/59 L BP Pulse Ox 06/19/19 07:32 96 06/19/19 03:48 97 06/18/19 23:22 91/50 L 96 06/18/19 21:25 99/62 L 99 06/18/19 21:00 97 06/18/19 20:59 97 06/18/19 20:53 98 06/18/19 20:50 98 06/18/19 20:40 06/18/19 20:30 97 Laboratory Results Laboratory Results - last 24 hr 06/18/19 06/18/19 06/18/19 16:49 16:49 16:49 WBC 6.43 RBC 4.21 Hgb 13.3 Hct 37.3 MCV 88.6 MCH 31.6 MCHC 35.7 RDW Std Deviation 39.3 RDW Coeff of Lalo 12.4 Plt Count 271 MPV 9.4 Immature Gran % (Auto) 0.0 Neut % (Auto) 58.7 Lymph % (Auto) 32.7 Green % (Auto) 6.1 Eos % (Auto) 2.0 Baso % (Auto) 0.5 Immature Gran # (Auto) 0.00 Neut # (Auto) 3.78 Lymph # (Auto) 2.10 Green # (Auto) 0.39 Eos # (Auto) 0.13 Baso # (Auto) 0.03 ESR PT 10.4 INR 1.0 APTT 24.2 PTT Ratio 0.9 Sodium 139 Potassium 3.5 Chloride 102 Carbon Dioxide 31 Anion Gap 6.0 BUN 14 Creatinine 0.79 Est Cr Clr Drug Dosing 72.4 Est GFR ( Amer) 99.8 Est GFR (Non-Af Amer) 86.1 BUN/Creatinine Ratio 18.4 Glucose 79 POC Glucose Calcium 9.2 Total Bilirubin 0.4 AST 20 ALT 41 Alkaline Phosphatase 69 Total Creatine Kinase CK-MB (CK-2) CK/CKMB % Calc POC Troponin I Troponin I C-Reactive Protein Total Protein 7.6 Albumin 4.3 Globulin 3.3 Albumin/Globulin Ratio 1.3 06/18/19 06/18/19 06/18/19 16:49 16:49 16:49 WBC RBC Hgb Hct MCV MCH MCHC RDW Std Deviation RDW Coeff of Lalo Plt Count MPV Immature Gran % (Auto) Neut % (Auto) Lymph % (Auto) Green % (Auto) Eos % (Auto) Baso % (Auto) Immature Gran # (Auto) Neut # (Auto) Lymph # (Auto) Green # (Auto) Eos # (Auto) Baso # (Auto) ESR 10 PT INR APTT PTT Ratio Sodium Potassium Chloride Carbon Dioxide Anion Gap BUN Creatinine Est Cr Clr Drug Dosing Est GFR ( Amer) Est GFR (Non-Af Amer) BUN/Creatinine Ratio Glucose POC Glucose Calcium Total Bilirubin AST ALT Alkaline Phosphatase Total Creatine Kinase 83 CK-MB (CK-2) 2.0 CK/CKMB % Calc 2.4 POC Troponin I Troponin I < 0.015 C-Reactive Protein < 0.29 Total Protein Albumin Globulin Albumin/Globulin Ratio 06/18/19 06/18/19 06/18/19 17:01 20:13 21:33 WBC RBC Hgb Hct MCV MCH MCHC RDW Std Deviation RDW Coeff of Lalo Plt Count MPV Immature Gran % (Auto) Neut % (Auto) Lymph % (Auto) Green % (Auto) Eos % (Auto) Baso % (Auto) Immature Gran # (Auto) Neut # (Auto) Lymph # (Auto) Green # (Auto) Eos # (Auto) Baso # (Auto) ESR PT INR APTT PTT Ratio Sodium Potassium Chloride Carbon Dioxide Anion Gap BUN Creatinine Est Cr Clr Drug Dosing Est GFR ( Amer) Est GFR (Non-Af Amer) BUN/Creatinine Ratio Glucose POC Glucose 83 Calcium Total Bilirubin AST ALT Alkaline Phosphatase Total Creatine Kinase CK-MB (CK-2) CK/CKMB % Calc POC Troponin I 0.03 Troponin I 0.034 C-Reactive Protein Total Protein Albumin Globulin Albumin/Globulin Ratio 06/19/19 06/19/19 06/19/19 00:29 03:41 03:41 WBC 6.37 RBC 3.67 L Hgb 11.4 L Hct 32.7 L MCV 89.1 MCH 31.1 MCHC 34.9 RDW Std Deviation 40.2 RDW Coeff of Lalo 12.5 Plt Count 235 MPV 9.3 Immature Gran % (Auto) 0.2 Neut % (Auto) 57.6 Lymph % (Auto) 33.4 Green % (Auto) 6.6 Eos % (Auto) 1.9 Baso % (Auto) 0.3 Immature Gran # (Auto) 0.01 Neut # (Auto) 3.67 Lymph # (Auto) 2.13 Green # (Auto) 0.42 Eos # (Auto) 0.12 Baso # (Auto) 0.02 ESR PT INR APTT 41.0 H PTT Ratio 1.5 Sodium Potassium Chloride Carbon Dioxide Anion Gap BUN Creatinine Est Cr Clr Drug Dosing Est GFR ( Amer) Est GFR (Non-Af Amer) BUN/Creatinine Ratio Glucose POC Glucose Calcium Total Bilirubin AST ALT Alkaline Phosphatase Total Creatine Kinase CK-MB (CK-2) CK/CKMB % Calc POC Troponin I Troponin I 0.041 C-Reactive Protein Total Protein Albumin Globulin Albumin/Globulin Ratio 06/19/19 07:29 WBC RBC Hgb Hct MCV MCH MCHC RDW Std Deviation RDW Coeff of Lalo Plt Count MPV Immature Gran % (Auto) Neut % (Auto) Lymph % (Auto) Green % (Auto) Eos % (Auto) Baso % (Auto) Immature Gran # (Auto) Neut # (Auto) Lymph # (Auto) Green # (Auto) Eos # (Auto) Baso # (Auto) ESR PT INR APTT 50.0 H* PTT Ratio 1.8 Sodium Potassium Chloride Carbon Dioxide Anion Gap BUN Creatinine Est Cr Clr Drug Dosing Est GFR ( Amer) Est GFR (Non-Af Amer) BUN/Creatinine Ratio Glucose POC Glucose Calcium Total Bilirubin AST ALT Alkaline Phosphatase Total Creatine Kinase CK-MB (CK-2) CK/CKMB % Calc POC Troponin I Troponin I C-Reactive Protein Total Protein Albumin Globulin Albumin/Globulin Ratio Diagnostic Findings on 06/19/2019, telemetry was personally reviewed: No arrhythmia. Sinus rhythm. ECG personally reviewed: ECG 06/19/2019: Sinus rhythm 64 bpm. Anterior T-wave inversion and prolonged QT. No significant change from 06/18/2019. [facility] cardiac catheterization and echo report reviewed. Patient care discussed with her primary podiatrist assistant in [place] via telephone (Dr. Elliot Red). Medications Administered Current Inpatient Medications Acetaminophen (Tylenol) 650 mg PO Q4H PRN PRN Reason: Pain or Fever Stop: 07/18/19 21:22 Last Admin: 06/19/19 01:55 Dose: 650 mg Documented by: Aspirin (Ecotrin Ectab) 81 mg PO QAM [facility] Stop: 07/19/19 08:59 Atorvastatin Calcium (Lipitor) 80 mg PO HS [facility] Stop: 07/18/19 21:22 Last Admin: 06/18/19 21:57 Dose: 80 mg Documented by: Clopidogrel Bisulfate (Plavix) 75 mg PO QAM [facility] Stop: 07/19/19 08:59 Furosemide (Lasix) 40 mg PO DAILY [facility] Stop: 07/19/19 08:59 Heparin Sodium/Dextrose (Heparin Sodium/Dextrose) 25,000 units in 500 mls @ 13 mls/hr IV .Q24H [place]; Protocol Stop: 07/18/19 18:14 Last Titration: 06/19/19 01:07 Dose: 700 units/hr, 14 mls/hr Documented by: Potassium Chloride/Dextrose/Sod Cl (D5nss + 20meq Kcl) 20 meq in 1,000 mls @ 120 mls/hr IV .Q8H20M [facility] Stop: 07/18/19 21:44 Last Admin: 06/19/19 06:07 Dose: 120 mls/hr Documented by: Lisinopril (Zestril) 5 mg PO QAM [facility] Stop: 07/19/19 08:59 Magnesium Hydroxide (Milk Of Magnesia) 30 ml PO Q12H PRN PRN Reason: Constipation Stop: 07/18/19 21:22 Metoprolol Tartrate (Lopressor) 25 mg PO BID [facility] Stop: 07/18/19 21:22 Last Admin: 06/18/19 22:00 Dose: Not Given Documented by: Nitroglycerin (Nitrostat) 0.4 mg SL UD [facility] Stop: 07/18/19 21:22 Ondansetron HCl (Zofran) 4 mg IV Q6H PRN PRN Reason: Nausea Stop: 07/18/19 21:22 PG Care Time/CCT Total # of Minutes Spent Total Time Spent with Patient: Total time spent is greater than 50% in coordination of care (as documented) at patient's floor/unit and/or counseling patient:
[2019-06-19] MEDS ORDERED: ASPIRIN 81 MG CHEW ONE ×2 (08:57→09:20)
[2019-06-19] MEDS ORDERED: CLOPIDOGREL BISULFATE 75 MG TAB ONE (08:58)
[2019-06-19] MEDS ORDERED: ASPIRIN 81 MG ECTAB PO SCH (09:00)
[2019-06-19] MEDS ORDERED: FUROSEMIDE 40 MG TAB PO SCH (09:00)
--- NOTE | 2019-06-19 09:00 | Pre Anesthesia Assessment ---
Date of Service June 19, 2019 Pre Sedation Assessment Vital Signs Temp Pulse Pulse Pulse Resp BP BP 06/19/19 07:32 36.5 C 62 16 97/61 L 06/19/19 03:48 36.4 C L 57 L 18 90/43 L 06/18/19 23:22 36.5 C 65 18 06/18/19 21:25 36.6 C 69 18 06/18/19 21:00 56 L 13 98/57 L 06/18/19 20:59 61 15 93/60 L 06/18/19 20:53 61 20 86/58 L 06/18/19 20:50 64 15 06/18/19 20:40 63 18 06/18/19 20:30 67 14 89/59 L 06/18/19 20:20 68 14 06/18/19 20:10 66 17 06/18/19 20:08 66 18 105/66 06/18/19 20:07 66 20 88/68 L 06/18/19 20:00 68 18 81/54 L 06/18/19 19:50 63 16 06/18/19 19:40 67 19 06/18/19 19:30 65 15 94/65 L 06/18/19 19:20 73 15 06/18/19 19:10 66 14 06/18/19 19:00 70 15 90/65 L 06/18/19 18:50 64 14 06/18/19 18:40 70 12 06/18/19 18:38 67 66 14 94/50 L 94/50 L 06/18/19 18:30 61 19 06/18/19 18:20 72 18 06/18/19 18:10 69 13 06/18/19 18:00 67 12 06/18/19 17:20 64 15 06/18/19 17:16 60 20 06/18/19 17:00 60 66 19 100/61 100/61 06/18/19 16:13 36.7 C 71 20 121/77 BP Pulse Ox 06/19/19 07:32 96 06/19/19 03:48 97 06/18/19 23:22 91/50 L 96 06/18/19 21:25 99/62 L 99 06/18/19 21:00 97 06/18/19 20:59 97 06/18/19 20:53 98 06/18/19 20:50 98 06/18/19 20:40 06/18/19 20:30 97 06/18/19 20:20 98 06/18/19 20:10 97 06/18/19 20:08 98 06/18/19 20:07 98 06/18/19 20:00 98 06/18/19 19:50 97 06/18/19 19:40 97 06/18/19 19:30 97 06/18/19 19:20 98 06/18/19 19:10 98 06/18/19 19:00 98 06/18/19 18:50 98 06/18/19 18:40 98 06/18/19 18:38 97 06/18/19 18:30 06/18/19 18:20 06/18/19 18:10 06/18/19 18:00 06/18/19 17:20 99 06/18/19 17:16 99 06/18/19 17:00 100 06/18/19 16:13 99 Cardiovascular RRR, no murmur, no edema Respiratory normal respiratory effort, lungs clear to auscultation Pre-Sedation Airway Assessment Smoking Status: Never smoker Mallampati Class: I ASA: ASA3 NPO Status Date of Last Intake of Fluids: 06/18/19 Time of Last Intake of Fluids: 22:00 Date of Last Intake of Solid Food: 06/18/19 Time of Last Intake of Solid Foods: 22:00 Procedure Planning Contraindications for Sedation: none Current Medications Reviewed: Yes Notes The planned sedation has been discussed with the patient. Informed Consent was obtained. I have identified the patient, determined the appropriateness of sedation and have assessed the patient immediately prior to the procedure. All medicine(s) and interventions are by my order.
[2019-06-19] MEDS ORDERED: NiCARDipine HCL INJ 2.5 MG/ML 10 ML AMP ONE (09:01)
[2019-06-19] MEDS ORDERED: MIDAZOLAM HCL 1 MG/ML 2ML VIAL ONE ×2 (09:01→10:36)
[2019-06-19] MEDS ORDERED: HEPARIN (PORCINE) 1000 UNIT/ML 10 ML (CATH LAB USE ONLY) ONE (09:01)
[2019-06-19] MEDS ORDERED: fentaNYL citrate 100 MCG/2 ML VIAL ONE (09:01)
[2019-06-19] MEDS ORDERED: NITROGLYCERIN/D5W 100MCG/ML 20ML SYR ONE (09:02)
--- NOTE | 2019-06-19 10:44 | Cardiac Catheterization ---
[facility] Data: Improvement Specialist Cardiac Status Clinical evaluation leading to the procedure CAD Presenation: Unstable angina Anginal Classification: CCS IV Heart Failure: No Cardiogenic Shock within 24 Hours: No Cardiac Arrest within 24 Hours: No Imaging Studies Past 6 Months: Yes Stress Studies Past 6 Months: Yes Standard Exercise Test: Yes - Negative Stress Echocardiogram: Yes - Negative Stress Testing w/SPECT MPI: No Cardiac CTA: No Coronary Anatomy Dominant: Right Left Ventricular Angiography EF (%): n/a Diagnostic Physicians Name: Jordan Robles MD Status: Elective Closure Device Percutaneous Entry Location: Radial Closure Device: Radial Band Recommendations: Medical Therapy and/or Counseling and Management Recommendatons (IVUS of LMCA) Cardiac Cath Procedure Full Procedure Date June 19, 2019 Pre-Procedure Diagnosis Pre-Procedure Diagnosis: Angina and CAD AUC Score AUC Score: 7 Post-Procedure Diagnosis Post-Procedure Diagnosis: Mild CAD Procedure(s) Performed Procedure(s) Performed: Coronary Angiography, Left Heart Cath and Right Heart Cath Rental Manager Jordan Robles MD Manager Patient(s) P Glunt Estimated Blood Loss Estimated Blood Loss: < 30 ml Medication(s) Medication(s): Fentanyl, Heparin, Lidocaine 1%, Nicardipine and Versed Summary of Findings Procedures: 1. Coronary angiography 2. Left heart catheterization 3. Right heart catheterization 4. Moderate sedation Coronary angiography: 1. Left main coronary artery: The LMCA is large in caliber. Ostial LM CA appears mildly tapered but smooth but when a 5 Gambian JL 3.5 diagnostic catheter was engaged, she developed chest discomfort and had ventricularized arterial waveform. 2. Left anterior descending: The LAD is a large caliber vessel that extends to the apex. Proximal LAD 10% stenosis (proximal to proximal LAD stent). Long proximal to mid LAD stent patent. Small D2 and D3 vessels extending from the distal LAD without significant CAD. 3. Circumflex: The circumflex is a medium caliber vessel that gives rise to a high large caliber OM1 and a small OM2. No significant CAD within the circumflex system. 4. Right coronary artery: The RCA is large and dominant. Proximal RCA 10% stenosis. Remainder of RCA, PDA, and PL branches without significant CAD. Left heart catheterization: 1. Left ventriculography was not performed. 2. Frequent ectopy was present, which may affect interpretation of waveform. 3. No aortic stenosis. Peak to peak gradient across the aortic valve was approximately 0. 4. Mildly elevated LVEDP; 17mmHg. This is after being approximately 1 L positive fluid balance after receiving IV fluids overnight. Right heart catheterization: 1. Pulmonary capillary wedge pressure normal. V-wave 14 with a mean of 8mmHg. 2. Normal pulmonary artery pressure. PA pressure 23/7 with a mean of 12mmHg. 3. Right ventricular pressure 25/0 with RV EDP of 2mmHg. 4. Right atrial pressure normal. A-wave 5 with a V-wave of 3 and a mean of 2 mmHg. 5. Cardiac output via thermodilution was 5.7 L/min, with a cardiac index of 3.5 L/min/m2. 6. PVR 0.7 Wood units. Sedation start time: 9:23 a.m. Sedation end time: 10:20 a.m. Procedure details: 1. During engagement of the left main coronary artery, there was ventricularization of the arterial waveform and she developed chest discomfort. With repositioning of the catheter, the arterial waveform remained ventricularized. Impression: 1. Patent proximal to mid LAD stent. 2. Ventricularization of the arterial waveform with engagement agent of the LMCA with a 5 [place]ian catheter, which also reproduced her chest discomfort. 3. Otherwise, minimal nonobstructive CAD of the proximal RCA and proximal LAD. 4. No aortic stenosis. 5. Normal pulmonary capillary wedge pressure and PA pressure. 6. Mildly elevated LVEDP (approximately 1 L positive fluid balance after receiving IV fluids overnight). Plan: 1. Images were reviewed with Dr. Parrish of interventional Cardiology. Given her ongoing symptoms and ventricularization of the arterial waveform while engaged within the LMCA, reproducing her chest pain, concern for LMCA disease. Dr. Parrish plans to perform IVUS of the LMCA. Hemodynamics Rest Ao:: 97/53 Final Ao: 110/58 LV: 120/3/17 Recommendations Recommendations: Medical Therapy and/or Counseling and Management Recommendatons (IVUS of LMCA) Specimens Specimens: None Radiation Exposure (mGy) 825 mGy. Fluoro time 7.6 min. Contrast (mls) 60 ml Procedural Complication(s) None Disposition Improvement Specialist Holding/Recovery (Remains in laborer shaft sinking for IVUS)
[2019-06-19] MEDS ORDERED: SODIUM CHLORIDE 0.9% 1000ML 1,000 ML IV SCH (11:00)
[2019-06-19 11:11] LABS: iSTAT Arterial Blood Gas HCO3 24 meg/L (19-24); iSTAT Arterial Blood Gas pCO2 42 mmHg (35-46); iSTAT Arterial Blood Gas pH 7.37 (7.35-7.45); iSTAT Arterial Blood Gas pO2 117 mmHg (80-95); iSTAT Carbon Dioxide 25 mEq/l (24-31)
[2019-06-19 11:11] LABS: iSTAT Arterial Blood Gas HCO3 25 meg/L (19-24); iSTAT Arterial Blood Gas pCO2 45 mmHg (35-46); iSTAT Arterial Blood Gas pH 7.35 (7.35-7.45); iSTAT Arterial Blood Gas pO2 44 mmHg (80-95); iSTAT Carbon Dioxide 26 mEq/l (24-31)
--- NOTE | 2019-06-19 11:19 | Post Anesthesia Assessment ---
Date of Service June 19, 2019 Post Sedation Assessment Vital Signs Temp Pulse Pulse Pulse Resp BP BP 06/19/19 07:32 36.5 C 62 16 97/61 L 06/19/19 03:48 36.4 C L 57 L 18 90/43 L 06/18/19 23:22 36.5 C 65 18 06/18/19 21:25 36.6 C 69 18 06/18/19 21:00 56 L 13 98/57 L 06/18/19 20:59 61 15 93/60 L 06/18/19 20:53 61 20 86/58 L 06/18/19 20:50 64 15 06/18/19 20:40 63 18 06/18/19 20:30 67 14 89/59 L 06/18/19 20:20 68 14 06/18/19 20:10 66 17 06/18/19 20:08 66 18 105/66 06/18/19 20:07 66 20 88/68 L 06/18/19 20:00 68 18 81/54 L 06/18/19 19:50 63 16 06/18/19 19:40 67 19 06/18/19 19:30 65 15 94/65 L 06/18/19 19:20 73 15 06/18/19 19:10 66 14 06/18/19 19:00 70 15 90/65 L 06/18/19 18:50 64 14 06/18/19 18:40 70 12 06/18/19 18:38 67 66 14 94/50 L 94/50 L 06/18/19 18:30 61 19 06/18/19 18:20 72 18 06/18/19 18:10 69 13 06/18/19 18:00 67 12 06/18/19 17:20 64 15 06/18/19 17:16 60 20 06/18/19 17:00 60 66 19 100/61 100/61 06/18/19 16:13 36.7 C 71 20 121/77 BP Pulse Ox 06/19/19 07:32 96 06/19/19 03:48 97 06/18/19 23:22 91/50 L 96 06/18/19 21:25 99/62 L 99 06/18/19 21:00 97 06/18/19 20:59 97 06/18/19 20:53 98 06/18/19 20:50 98 06/18/19 20:40 06/18/19 20:30 97 06/18/19 20:20 98 06/18/19 20:10 97 06/18/19 20:08 98 06/18/19 20:07 98 06/18/19 20:00 98 06/18/19 19:50 97 06/18/19 19:40 97 06/18/19 19:30 97 06/18/19 19:20 98 06/18/19 19:10 98 06/18/19 19:00 98 06/18/19 18:50 98 06/18/19 18:40 98 06/18/19 18:38 97 06/18/19 18:30 06/18/19 18:20 06/18/19 18:10 06/18/19 18:00 06/18/19 17:20 99 06/18/19 17:16 99 06/18/19 17:00 100 06/18/19 16:13 99 Recovery Score Activity: Moves 4 extremities Respiration: Deep Breath/Cough Circulation: +/-20% PreAnes Value Consciousness: Fully Awake Post Sedation Plan On clinical assessment, the patient appears to have tolerated the sedation without complications. Patient is recovering as anticipated. Patient will continue to be monitored by nursing and may be discharged when sedation discharge criteria are met per below protocol. Upon Completions of procedure and additional 15 minutes continue every 5 minute vital signs and the P.A.R. score; then discharge to a Phase I or Fast Track to Phase II per the following guidelines: * Discharge Patient to appropriate Phase II area if PAR is 8 or greater or return to pre- procedure baseline. The post - procedure orders will be as directed. * If PAR score is less than 8 or not return to pre-procedure baseline then p atient will follow Phase I monitoring till PAR is reached for Phase II. The Phase I may be done in procedure room or may call to secure a Phase I area. * If naloxone or flumazenil are used for reversal, hold in Phase I for continued monitoring from when last reversal dose was given for a minimum of 60 minutes or longer pending the nurse and/or physician discretion of patient condition before discharge to Phase II. Please call the Sedation Physician to re-evaluate and complete post-note for discharge to Phase II area. Do NOT discharge from procedure sedation or Phase 1 until post- sedation evaluation note is complete by procedure /sedation MD Sedation Discharge Instructions to be given to the patient at discharge to home.
[2019-06-19] MEDS: CLOPIDOGREL BISULFATE 75 MG TAB PO SCH (13:04)
[2019-06-19] MEDS ORDERED: ISOSORBIDE MONO EXTENDED REL 30 MG TABCR PO ONE (13:19)
[2019-06-19] MEDS: LISINOPRIL 10 MG TAB PO SCH (15:04)
[2019-06-19] MEDS: METOPROLOL TARTRATE 25 MG TAB PO SCH ×2 (15:04→20:13)
[2019-06-19] MEDS: COLCHICINE 0.6 MG TAB PO SCH ×2 (16:30→20:23)
--- NOTE | 2019-06-19 20:19 | Hospitalist Progress Note ---
Date of Service June 19, 2019 Assessment & Plan (1) Chest pain: in setting of recent STEMI of LAD on 06/06/19, treated at [facility]. she has had continuous chest pain since earlier this week. seems worse with laying down and laying on left side. no GERD or GI symptoms. no change in symptoms with treating for acute CHF earlier this week. CTA chest earlier this week in [place] was negative for PE. troponins negative this admission. s/p repeat heart cath today - LAD stent patent, some concern for LMCA disease but this was ruled out. nothing to date has altered the course of her pain. has trace pericardial fluid on echo this am. some of the features sound like pericarditis. I discussed her case with Dr Robles -- will treat for pericarditis with aspirin 325mg BID and colchicine 0.6mg BID. Follow response. (2) CAD (coronary artery disease): see discussion above in "chest pain." recent STEMI of LAD s/p NETO at [facility]. cont asa, statin, plavix, low-dose NEIL and beta sari. Dr Robles to add imdur. cath results from today reviewed. stop heparin infusion since no ACS. (3) Cardiomyopathy: compensated clinically at this time cont lasix daily (4) Dyslipidemia: cont high-intensity statin (5) GERD (gastroesophageal reflux disease): add PPI (6) DVT prophylaxis: currently on heparin drip - to be stopped if she stays beyond tomorrow am then add SC lovenox daughter updated keep overnight to assess response to asa BID and colchicine BID Subjective saw the patient post-heart cath. she has had nearly continuous pain in her substernal region since Saturday of this week - this prompted admission to [facility] earlier this week. reportedly had CTA chest that was neg for PE. laying down and particularly laying on left side makes pain more intense. during her echo today, when she was asked to lay on her left side, the pain was worse. no reflux symptoms. no change in her symptoms with diuresis this week. pushing on the chest does not reproduce the symptoms. patient states that the quality/character of the current pain is very different than her heart attack pain. pain radiates towards upper right chest and sometimes into the back. no dyspnea. heart cath results reviewed with Dr Robles. Review of Systems Constitutional: no fever Respiratory: no cough and no wheezing Cardiovascular: as per Subjective / HPI; no paroxysmal nocturnal dyspnea and no edema Gastrointestinal: no abdominal pain, no nausea and no vomiting Physical Exam Constitutional: well developed and well nourished; no acute distress ENMT: external ear and nose normal, oropharynx normal Respiratory: normal respiratory effort, lungs clear to auscultation Cardiovascular: Rate/Rhythm: regular rate and regular rhythm Heart Sounds: normal S1 and normal S2; no murmur Vessels: posterior tibial pulses present and dorsalis pedis pulses present; no JVD Extremities: no edema Chest (Breasts): Additional Comments: no reproducible chest wall pain to palpation Gastrointestinal (Abdomen): normal bowel sounds, soft, nontender, no hepat osplenomegaly Skin: no rashes, warm and dry Psychiatric: A+Ox3, euthymic affect Results & Data Vital Signs (Past 12 Hours) Vital Signs Temp Pulse Pulse Resp BP BP Pulse Ox 06/19/19 20:02 37.1 C 64 18 94/57 L 98 06/19/19 15:28 36.6 C 74 18 106/67 99 06/19/19 14:11 81 18 112/71 99 06/19/19 13:11 82 16 112/69 98 06/19/19 12:11 79 16 129/81 100 06/19/19 11:41 18 129/81 99 06/19/19 11:11 36.6 C 73 18 114/74 99 Laboratory Results Laboratory Results - last 24 hr 06/18/19 06/18/19 06/18/19 16:49 20:13 21:33 WBC RBC Hgb Hct MCV MCH MCHC RDW Std Deviation RDW Coeff of Lalo Plt Count MPV Immature Gran % (Auto) Neut % (Auto) Lymph % (Auto) [place] % (Auto) Eos % (Auto) Baso % (Auto) Immature Gran # (Auto) Neut # (Auto) Lymph # (Auto) [place] # (Auto) Eos # (Auto) Baso # (Auto) APTT PTT Ratio Activ Coag Time Kaolin POC pH POC pCO2 POC pO2 POC HCO3 POC Total CO2 POC Base Excess POC ABG O2 Sat POC Glucose 83 Total Creatine Kinase 83 CK-MB (CK-2) 2.0 CK/CKMB % Calc 2.4 Troponin I < 0.015 0.034 NT-Pro-B Natriuret Pep 06/19/19 06/19/19 06/19/19 00:29 03:41 03:41 WBC 6.37 RBC 3.67 L Hgb 11.4 L Hct 32.7 L MCV 89.1 MCH 31.1 MCHC 34.9 RDW Std Deviation 40.2 RDW Coeff of Lalo 12.5 Plt Count 235 MPV 9.3 Immature Gran % (Auto) 0.2 Neut % (Auto) 57.6 Lymph % (Auto) 33.4 [place]aston % (Auto) 6.6 Eos % (Auto) 1.9 Baso % (Auto) 0.3 Immature Gran # (Auto) 0.01 Neut # (Auto) 3.67 Lymph # (Auto) 2.13 [place]aston # (Auto) 0.42 Eos # (Auto) 0.12 Baso # (Auto) 0.02 APTT 41.0 H PTT Ratio 1.5 Activ Coag Time Kaolin POC pH POC pCO2 POC pO2 POC HCO3 POC Total CO2 POC Base Excess POC ABG O2 Sat POC Glucose Total Creatine Kinase CK-MB (CK-2) CK/CKMB % Calc Troponin I 0.041 NT-Pro-B Natriuret Pep 06/19/19 06/19/19 06/19/19 07:29 07:29 09:45 WBC RBC Hgb Hct MCV MCH MCHC RDW Std Deviation RDW Coeff of Lalo Plt Count MPV Immature Gran % (Auto) Neut % (Auto) Lymph % (Auto) [place] % (Auto) Eos % (Auto) Baso % (Auto) Immature Gran # (Auto) Neut # (Auto) Lymph # (Auto) [place] # (Auto) Eos # (Auto) Baso # (Auto) APTT 50.0 H* PTT Ratio 1.8 Activ Coag Time Kaolin POC pH 7.35 POC pCO2 45 POC pO2 44 L POC HCO3 25 H POC Total CO2 26 POC Base Excess -1.0 POC ABG O2 Sat 77.0 L POC Glucose Total Creatine Kinase CK-MB (CK-2) CK/CKMB % Calc Troponin I NT-Pro-B Natriuret Pep 585 06/19/19 06/19/19 06/19/19 09:49 10:38 11:37 WBC RBC Hgb Hct MCV MCH MCHC RDW Std Deviation RDW Coeff of Lalo Plt Count MPV Immature Gran % (Auto) Neut % (Auto) Lymph % (Auto) [place] % (Auto) Eos % (Auto) Baso % (Auto) Immature Gran # (Auto) Neut # (Auto) Lymph # (Auto) [place] # (Auto) Eos # (Auto) Baso # (Auto) APTT PTT Ratio Activ Coag Time Kaolin 263 H POC pH 7.37 POC pCO2 42 POC pO2 117 H POC HCO3 24 POC Total CO2 25 POC Base Excess -1.0 POC ABG O2 Sat 98.0 H POC Glucose 70 Total Creatine Kinase CK-MB (CK-2) CK/CKMB % Calc Troponin I NT-Pro-B Natriuret Pep PG Care Time/CCT Total # of Minutes Spent Total Time Spent with Patient: Total time spent is greater than 50% in coordination of care (as documented) at patient's floor/unit and/or counseling patient: (1) Chest pain Chest pain type: unspecified Qualified Code(s): R07.9 - Chest pain, unspecified (2) CAD (coronary artery disease) Coronary Disease-Associated Artery/Lesion type: [place] artery [place] vs. transplanted heart: rosebud heart Associated angina: angina presence unspecified Qualified Code(s): I25.10 - Atherosclerotic heart disease of [place] coronary artery without angina pectoris (3) Cardiomyopathy Cardiomyopathy type: ischemic Qualified Code(s): I25.5 - Ischemic cardiomyopathy (4) GERD (gastroesophageal reflux disease) Esophagitis presence: esophagitis presence not specified Qualified Code(s): K21.9 - Gastro-esophageal reflux disease without esophagitis
[2019-06-19] MEDS: ASPIRIN 325 MG ECTAB PO SCH (20:23)
[2019-06-19] MEDS: ATORVASTATIN 40 MG TAB PO SCH (20:23)
[2019-06-20] MEDS: ACETAMINOPHEN 325 MG TAB PO PRN ×2 (02:49→14:52)
[2019-06-20 06:34] LABS: BUN Creatinine Ratio 14.7 (10-20); Calcium 8.1 mg/dl (8.5-10.1); Creatinine Clr Calc Pharmacy 98.3 ml/min; Est GFR (African American) 122.1; Est GFR (Non-African American) 105.4; Potassium 3.7 mmol/L (3.5-5.1)
[2019-06-20] MEDS: METOPROLOL TARTRATE 25 MG TAB PO SCH ×2 (08:16→21:00)
[2019-06-20] MEDS: ASPIRIN 325 MG ECTAB PO SCH ×2 (08:16→20:59)
[2019-06-20] MEDS: CLOPIDOGREL BISULFATE 75 MG TAB PO SCH (08:16)
[2019-06-20] MEDS: COLCHICINE 0.6 MG TAB PO SCH ×2 (08:17→20:59)
[2019-06-20] MEDS: LISINOPRIL 10 MG TAB PO SCH (08:17)
[2019-06-20] MEDS ORDERED: ISOSORBIDE MONO EXTENDED REL 30 MG TABCR PO SCH (09:00)
--- NOTE | 2019-06-20 14:49 | Magnetic Resonance Report ---
MR brain wo con CLINICAL HISTORY: 53 years-old Female presenting with visual disturbance, recent heart cath, headache , bilateral eye floaters, stent placed on 06/06/2019. TECHNIQUE: Multisequence, multiplanar MR imaging of the brain was performed without the use of intrav enous contrast. IV contrast: None. COMPARISON: None. FINDINGS: Localizer images: Unremarkable. Bone marrow signal intensity within the calvarium within normal limits. Normal midline sagittal structures apart for the cavum septi pellucidi et vergae. Ventricles and sulc i normal in size. No mass effect or midline shift. Punctate focus of restricted diffusion in the post erior left temporal lobe. Additional smaller punctate focus in the right caudate body. Third punctate focus of restricted diffusion in the inferior right frontal lobe white matter. Few scattered periven tricular and subcortical white matter T2/FLAIR hyperintensity, nonspecific but likely indicative of c hronic small vessel ischemic change. No extra-axial fluid collection. T2 skull base flow voids preserved. IMPRESSION: 1. Few (3) punctate foci of acute infarct involving the left temporal lobe, inferior right frontal l obe, and right caudate body. The distribution suggests an embolic etiology. 2. Mild chronic small vessel ischemic change. Electronically signed by: Jhony Lee M.D. 06/20/2019 2:48 PM
--- NOTE | 2019-06-20 18:46 | Hospitalist Progress Note ---
Date of Service June 20, 2019 Assessment & Plan (1) Embolic stroke: In light of visual disturbance post-cath, ongoing headache, etc I obtained MRI brain today. This showed b/l punctate infarcts. Suspect embolic strokes in the setting of her cath yesterday. Fortunately they are very tiny and she should not have any sequelae from them. I am going to recommend she see ophthamology this week for dilated eye exam to r/o retinal infarcts from this event as she endorses ongoing floaters, etc. Her visual berry are full and thus retinal detachment is unlikely. Cont asa. Cont statin. Will complete her stroke w/u -- carotid duplex, MRA brain, and formal neuro/PT/OT/speech consults. 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 She has improved with high-dose asa 325mg BID and colchicine. Will continue both. At d/c will change colchicine to 0.6mg daily and cont the asa 325mg BID. s/p cath yesterday with patent stent and patent vessels. No coronary vasospasm seen. CTA chest at [facility] this week was neg for PE. Pain is not reproducible and no GI symptoms. (3) Headache, temporal: possibly due to b/l strokes? tension/migraine? combination? treat with tylenol. asa and colchicine will help as well. stop imdur - could be contributing. (4) Chest pain: in setting of recent STEMI of LAD on 06/06/19, treated at [facility]. IMPROVING. she had continuous chest pain since earlier this week. worse with laying down and laying on left side. no GERD or GI symptoms. no change in symptoms with treating for acute CHF earlier this week. CTA chest earlier this week in [place] was negative for PE. troponins negative this admission. s/p repeat heart cath yesterday - LAD stent patent, some concern for LMCA disease but this was ruled out. nothing to date has altered the course of her pain. trace pericardial fluid on echo this admission. some of the features sound like post-SD pericarditis. treating for such with aspirin 325mg BID and colchicine 0.6mg BID. (5) CAD (coronary artery disease): see discussion above in "chest pain." recent STEMI of LAD s/p NETO at [facility]. cont asa, statin, plavix, low-dose NEIL (if BP can tolerate) and beta sari. stop imdur for now as recommended by Dr Aguilar. (6) Cardiomyopathy: compensated clinically at this time lasix stopped by cardiology (7) Dyslipidemia: cont high-intensity statin (8) GERD (gastroesophageal reflux disease): consider PPI if chest pain is refractory despite treating suspected pericarditis (9) DVT prophylaxis: ambulating frequently anticipate d/c tomorrow if stroke w/u otherwise negative updated total time today over several visits, speaking w/ cardiology and neurology, ordering/interpreting tests, etc - 75 minutes Subjective multiple visits to pt's bedside today. first visit on AM rounds -- patient reports chest pressure is better today. Only comes on with laying flat. No chest pain w/ exertion. Walking the halls w/o dyspnea either. Headache persists - bitemporal, some nausea, throbbing, behind the eyes, continues to see "black spots" when she gazes left or right. NO visual field cuts, flashes of light, etc. patient then had MRI brain -- results noted; discussed b/l punctate strokes with patient, etiology (post-cath likely), etc. BP mildly low today -- some initial dizziness upon standing, then resolves. updated at bedside today Review of Systems Constitutional: no fever, no chills and no anorexia Respiratory: no cough, no dyspnea and no dyspnea on exertion Cardiovascular: as per Subjective / HPI and + lightheadedness; no chest pain with activity, no radiating jaw, neck or arm pain, no dyspnea, no dyspnea at rest, no dyspnea on exertion, no orthopnea, no paroxysmal nocturnal dyspnea, no palpitations and no edema Gastrointestinal: no abdominal pain, no nausea and no vomiting Physical Exam Constitutional: well developed and well nourished; no acute distress Eyes: normal visual berry by confrontation, PERRL and EOM intact bilaterally; no nystagmus ENMT: external ear and nose normal, oropharynx normal Respiratory: normal respiratory effort, lungs clear to auscultation Cardiovascular: Rate/Rhythm: regular rate and regular rhythm Heart Sounds: normal S1 and normal S2; no murmur Vessels: posterior tibial pulses present and dorsalis pedis pulses present; no JVD Extremities: no edema Gastrointestinal (Abdomen): normal bowel sounds, soft, nontender, no hepatosplenomegaly Skin: no rashes, warm and dry Neurologic: normal touch/pain/proprioception, deep tendon reflexes 2+ bilaterally and moves all extremities; no focal motor deficits Speech / Cognition: normal speech Motor/Sensory: no pronator drift Gait: no ataxic gait Psychiatric: A+Ox3, euthymic affect Results & Data Vital Signs (Past 12 Hours) Vital Signs Temp Pulse Resp BP BP Pulse Ox 06/20/19 15:30 37.0 C 62 17 107/61 99 06/20/19 11:41 36.9 C 61 16 97/61 L 99 06/20/19 07:37 36.7 C 74 16 106/64 96 Diagnostic Findings MRI brain - b/l punctate strokes various lobes PG Care Time/CCT Total # of Minutes Spent Total Time Spent with Patient: Total time spent is greater than 50% in co ordination of care (as documented) at patient's floor/unit and/or counseling patient: (1) CAD (coronary artery disease) Associated angina: angina presence unspecified Coronary Disease-Associated Artery/Lesion type: [place] artery [place] vs. transplanted heart: [place] heart Qualified Code(s): I25.10 - Atherosclerotic heart disease of [place] coronary artery without angina pectoris (2) GERD (gastroesophageal reflux disease) Esophagitis presence: esophagitis presence not specified Qualified Code(s): K21.9 - Gastro-esophageal reflux disease without esophagitis (3) Chest pain Chest pain type: unspecified Qualified Code(s): R07.9 - Chest pain, unspecified (4) Cardiomyopathy Cardiomyopathy type: ischemic Qualified Code(s): I25.5 - Ischemic cardiomyopathy (5) Embolic stroke Precerebral and cerebral artery: unspecified precerebral artery Qualified Code(s): I63.10 - Cerebral infarction due to embolism of unspecified precerebral artery
[2019-06-20] MEDS: ATORVASTATIN 40 MG TAB PO SCH (20:59)
[2019-06-21 05:41] LABS: Basophils # (auto) 0.04 K/uL (0-0.2); Basophils % (auto) 0.7 %; Eosinophils # (auto) 0.17 K/uL (0-0.5); Eosinophils % (auto) 2.8 %; Hematocrit (blood only) 34.1 % (37-47); Hemoglobin 11.7 g/dL (12.0-16.0); Lymphocytes # (auto) 1.66 K/uL (1.2-3.4); Lymphocytes % (auto) 27.7 %; Mean Corpuscular Hemoglobin 30.8 pg (25-34); Mean Corpuscular Hgb Conc 34.3 g/dL (32-36); Mean Corpuscular Volume 89.7 fL (80-100); Mean Platelet Volume 9.5 fL (7.4-10.4); Monocytes # (auto) 0.43 K/uL (0.11-0.59); Monocytes % (auto) 7.2 %; Neutrophils # (auto) 3.69 K/uL (1.4-6.5); Neutrophils % (auto) 61.6 %; Platelet Count 217 K/uL (130-400); RDW Coefficient of Variation 12.5 % (11.5-14.5); RDW Standard Deviation 40.5 fL (36.4-46.3); White Blood Count 5.99 K/uL (4.8-10.8)
[2019-06-21 06:15] LABS: Calcium 8.4 mg/dl (8.5-10.1); Est GFR (Non-African American) 100.1; Magnesium 2.1 mg/dl (1.8-2.4); Potassium 3.9 mmol/L (3.5-5.1)
[2019-06-21 06:26] LABS: Thyroid Stimulating Hormone 3.77 uIu/ml (0.300-4.500)
--- NOTE | 2019-06-21 08:08 | Ultrasound Report ---
BILATERAL CAROTID DOPPLER STUDY HISTORY: b/l strokes; eval for ICA stenosis COMPARISON: None. TECHNIQUE: Real-time, grayscale, and color Doppler sonography of the carotid arteries was performed. Imaging reviewed in the transverse and longitudinal planes. All measurements were calculated based on NASCET criteria. FINDINGS: Antegrade flow is seen in the bilateral vertebral arteries. The brachial pressures are hemodynamically similar. The peak systolic velocity within the right ICA is 73 cm/s. The right systolic ratio is 0.8. The peak systolic velocity within the left ICA is 88 cm/s. The left systolic ratio is 1.2. IMPRESSION: No hemodynamically significant stenosis seen within the carotid arteries. Electronically signed by: Jose Swanson M.D. 06/21/2019 8:06 AM
[2019-06-21] MEDS: COLCHICINE 0.6 MG TAB PO SCH (08:12)
[2019-06-21] MEDS: CLOPIDOGREL BISULFATE 75 MG TAB PO SCH (08:13)
[2019-06-21] MEDS: METOPROLOL TARTRATE 25 MG TAB PO SCH (08:13)
[2019-06-21] MEDS: ASPIRIN 325 MG ECTAB PO SCH (08:13)
--- NOTE | 2019-06-21 10:20 | Neurology Consultation ---
Date of Consultation June 21, 2019 Assessment & Plan (1) Embolic stroke: (2) Headache, temporal: (3) Vision abnormalities: (4) Chronic cerebral ischemia: Patient had 3 tiny acute strokes scattered bilaterally in different vascular distributions consistent with embolic events. They are small and likely from her cardiac catheterization procedure, from her heart. Currently she has no headache and her visual symptoms are improved. She still has some black spots and floaters in her eyes bilaterally. These could represent embolic phenomenon to the eye as well. MRI of the brain also showed some mild old nonspecific small vessel ischemic change. She has a very strong positive history of coronary artery disease and a have a genetic tendency to have small vascular events. On neurologic examination she has no focal signs, meningeal signs, or encephalopathy. She has no evidence of atrial fibrillation or other risk factors for embolic stroke stemming from her heart. She has been on aspirin and Plavix for about 2 weeks now. Recommendations: 1. CT angiography of the head neck, in order to ascertain her risk for additional small vessel ischemic disease/small strokes. 2. Increase activity as able. 3. Continue 81 milligram aspirin tablet +70 5 milligrams clopidogrel daily. From a neurologic standpoint, I would have her remain on clopidogrel alone after 2-3 weeks. 4. There is no indication at this time for anticoagulation, from a neurologic standpoint. 5. I would like to see her for follow-up as an outpatient. 6. She would need an ophthalmology consultation as an outpatient also. Overall, I spent a total of 80 minutes with this case including review of re cords, review of MRI films, direct evaluation the patient at bedside, and discussion of the case with the patient at bedside, her who was at bedside, her RN, and Dr. Eden, including differential diagnosis and treatment options. History of Present Illness Reason for Consultation: Patient is a 53-year-old, who I was asked to see at the request of Dr. Eden, for neurologic consultation regarding stroke. Requesting Physician: Dr. Eden Attending Physician: Francisco Eden History of Present Illness Patient has no significant past medical history of hypertension, diabetes, or cigarette smoking, but there is some history of dyslipidemia. Patient was doing very well until April of this year when she started getting chest pain. In mid May, she ended up going to the [facility] in [place] having a cardiac catheterization with stent placement on June 06, for 99 percent stenosis of the LAD. Patient did excellent following this procedure and had 5 good days. She was very active physically. She then started getting sensations of gurgling and that she was drowning and when she lay down. She was easily tired and short of breath felt a chest. CT scan of the chest showed no clot on June 17 she had an echocardiogram which showed good ejection fraction. Because of symptoms that became worse with chest pain, shortness of breath with exertion, and some numbness to her left shoulder she came to the emergency room June 18 and was admitted. She underwent cardiac catheterization June 19. Her blood pressure has been somewhat low before and after this catheterization. Following the cardiac catheterization she noticed severe headache mostly in the bitemporal head regions a pulsating nature with nausea. There was no vomiting, photophobia, or sonophobia. She also had black spots in her vision bilaterally with some blurry vision. Tylenol did not help headache but the nausea persisted. Blood pressure was noted to be low at times. She was a little lightheaded with standing. She had no speech abnormalities, mentation problems, or pain, weakness, or numbness in the limbs. An MRI of the brain showed 3 punctate acute strokes in the right inferior frontal, left temporal, and right caudate head regions. In addition, there was some mild nonspecific old small vessel ischemic change of a very nonspecific nature. I reviewed these films. CBC showed mild anemia. Chem profile was unremarkable. Triglyceride was 125, cholesterol 114, LDL 37, HDL 52, and TSH 3.77. Carotid ultrasound was unremarkable. Today the patient feels much better. She still has a few black spots and floaters in her vision bilaterally but no blurry or double vision. She has no headache and no other symptoms. Nursing reports an age stroke scale of 0. Blood pressure this morning was 111/67. Allergies Allergy/AdvReac Type Severity Reaction Status Date / Time pineapple Allergy Severe throat Verified 05/12/19 08:28 swells up naproxen [From Aleve] Allergy Mild throat Unverified 05/12/19 08:28 swells/hives Penicillins Allergy Mild Hives Unverified 05/12/19 08:28 Home Medications Home Medications Medication Instructions Recorded Confirmed Type atorvastatin 80 mg PO HS 06/18/19 06/18/19 History clopidogrel 75 mg PO QAM 06/18/19 06/18/19 History coenzyme Q10 [CoQ-10] 30 mg PO HS 06/18/19 06/18/19 History furosemide 40 mg PO DAILY 06/18/19 06/18/19 History lisinopril 5 mg PO QAM 06/18/19 06/18/19 History metoprolol tartrate 25 mg PO BID 06/18/19 06/18/19 History nitroglycerin 0.4 mg SUBLINGUAL UD 06/18/19 06/18/19 History omega 3-gky-npq-fish oil [Fish Oil] 2 cap PO DAILY 06/18/19 06/18/19 History ranitidine HCl 150 mg PO QAM 06/18/19 06/18/19 History Patient History Medical History Cardiomyopathy CAD (coronary artery disease) Urethral diverticulum Excision of Urethral Diverticulum Dyslipidemia (Chronic) GERD (gastroesophageal reflux disease) (Chronic) Surgical History S/P coronary artery stent placement Hx of lithotripsy 1993 Status post hysteroscopic ablation of endometrium 08/19/[address] Gee History of (Resolved) Family History Father Family history of cardiac disorder Myocardial infarction Mother Family history of breast cancer Family history of cardiac disorder Myocardial infarction Lung cancer Brother Family history of alcohol abuse Family history of cardiac disorder Family history of depression Grandmother (Maternal) Family history of breast cancer Other Coronary heart disease Heart disease Hypertension Social History Preferred Language: Ecuadorean Communication Ability: Effective Hearing Ability: Normal Medication Reconciliation Technician Required: No Beliefs That Will Affect Care: None marital status: Current Living Situation: Family current occupational status: employed 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 Hx Substance Use: No Review of Systems Constitutional: no fever, no fatigue and no weakness Eyes: no diplopia, no eye pain and no worsening vision Ear, Nose, Mouth, Throat: no ear pain, no tinnitus, no hearing loss, no dizziness, no snoring, no hoarseness and no dysphagia Respiratory: no cough and no dyspnea Cardiovascular: no chest pain, no palpitations and no lightheadedness Gastrointestinal: no abdominal pain, no nausea and no vomiting Genitourinary: no dysuria, no urinary frequency and no urinary incontinence Musculoskeletal: no back pain, no neck pain, no radicular pain, no joint pain and no myalgia Integumentary: no rash and no lesions Neurologic: no gait abnormality, no localized weakness, no generalized weakness, no tingling, no numbness, no tremor(s), no abnormal movements, no headache(s), no abnormal speech, no confusion and no memory loss Psychiatric: no depression, no irritability, no anxiety, no difficulty concentrating, no confusion and no hallucinations Endocrine: no fatigue and no flushing Hematologic / Lymphatic: no easy bleeding and no easy bruising Allergy / Immunological: no urticaria and no problem reported Physical Exam Physical Exam: The patient is right-handed. The patient is awake, alert, and attentive. Speech is normal without any aphasia or dysarthria. She can name objects, repeat phrases, and has normal spontaneous speech. Mentation and thought processes are intact, with orientation to person, place and time, and normal fund of knowledge. Attention and concentration are normal. Mood and affect are normal and appropriate. General appearance and grooming are normal. Short and long-term memory are intact. The discs are sharp with positive venous pulsations bilaterally. There are no exudates, hemorrhages, or blood vessel changes seen. Pupils are 4 mm bilaterally and reactive to light. Extraocular eye muscles are intact without nystagmus. Visual acuity and visual berry seem normal grossly to confrontation. There are no deficits to sensation in the face in all 3 distributions of the fifth cranial nerve bilaterally. Corneal reflexes are positive bilaterally. Facial strength and symmetry was normal bilaterally. Hearing seems normal to whisper and finger rub bilaterally. Palate moves well without asymmetry. There is normal sternocleidomastoid and trapezius (shoulder shrug) strength bilaterally. Tongue is midline with good strength bilaterally. Neck has a full range of motion without discomfort. There are no cervical bruits bilaterally. There are no cranial or ocular bruits. Heart is without murmur. There is a regular rhythm and rate. Cervical, thoracic, and lumbar spine are nontender to palpation. Gait is narrow based, with good arm swing, turns, and stance. Stance is normal eyes open. With outstretched arms there is no drift. There are no resting, postural, or action tremors. There is no ataxia with finger to nose testing. There is good facility in the hands. No other abnormal involuntary movements are noted. Motor strength is 5/5 diffusely in the arms bilaterally including deltoids, biceps, triceps, brachioradialis, wrist flexors and extensors, industrial relations manager, and intrinsic hand muscles. Motor strength is 5/5 diffusely in the legs bilaterally including hip flexors, quadriceps, hamstrings, gastrocnemius, tibialis anterior, tibialis posterior, and Peroneii muscles. Toe extensors are normal and there is good bulk in the extensor digitorum brevis muscles bilaterally. The limbs have good tone without rigidity or spasticity. There is no atrophy noted in the muscles. Muscle bulk is normal, there is no tenderness to palpation, no myotonia to percussion, and no fasciculations seen. Sensory examination is intact to touch and pin throughout all 4 limbs diffusely. Reflexes are 2/4 in the biceps, triceps, brachioradialis, quadriceps, and Achilles tendons bilaterally. There is no clonus bilaterally. Toes are downgoing with plantar stimulation bilaterally. Peripheral pulses are present and of normal quality distally in all 4 limbs. There is no peripheral edema noted in the limbs. Results & Data Vital Signs (Past 12 Hours) Vital Signs Temp Pulse Pulse Resp BP BP Pulse Ox 06/21/19 08:00 69 06/21/19 07:28 37.0 C 67 17 111/67 98 06/20/19 23:27 36.9 C 68 18 91/52 L 97 Diagnostic Findings MR brain wo con CLINICAL HISTORY: 53 years-old Female presenting with visual disturbance, recent heart cath, headache, bilateral eye floaters, stent placed on 06/06/2019. TECHNIQUE: Multisequence, multiplanar MR imaging of the brain was performed without the use of intravenous contrast. IV contrast: None. COMPARISON: None. FINDINGS: Localizer images: Unremarkable. Bone marrow signal intensity within the calvarium within normal limits. Normal midline sagittal structures apart for the cavum septi pellucidi et vergae. Ventricles and sulci normal in size. No mass effect or midline shift. Punctate focus of restricted diffusion in the posterior left temporal lobe. A dditional smaller punctate focus in the right caudate body. Third punctate focus of restricted diffusion in the inferior right frontal lobe white matter. Few scattered periventricular and subcortical white matter T2/FLAIR hyperintensity, nonspecific but likely indicative of chronic small vessel ischemic change. No extra-axial fluid collection. T2 skull base flow voids preserved. IMPRESSION: 1. Few (3) punctate foci of acute infarct involving the left temporal lobe, inferior right frontal lobe, and right caudate body. The distribution suggests an embolic etiology. 2. Mild chronic small vessel ischemic change. Electronically signed by: Jhony Lee M.D. 06/20/2019 2:48 PM PG Care Time/CCT Total # of Minutes Spent Total Time Spent with Patient: Total time spent is greater than 50% in coordination of care (as documented) at patient's floor/unit and/or counseling patient: (1) Embolic stroke Precerebral and cerebral artery: unspecified precerebral artery Qualified Code(s): I63.10 - Cerebral infarction due to embolism of unspecified precerebral artery
[2019-06-21 11:10] VITALS: BP 105/67; TEMP 98.4; O2SAT 97
--- NOTE | 2019-06-21 12:51 | Magnetic Resonance Report ---
Brain MRA HISTORY: embolic strokes TECHNIQUE: 3-D [id number] MRA of the brain was performed without contrast. COMPARISON STUDY: None. FINDINGS: Visualized intracranial internal carotid arteries, distal vertebral arteries, and basilar a rtery are widely patent. There is no significant stenosis, occlusion, or aneurysm seen within the michelle ateral ACAs, MCAs, or digital experience manager. 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 The bilatera l ACAs are fed through the left side. IMPRESSION: No significant stenosis, occlusion, or aneurysm within the [place] of [place]. Electronically signed by: Jose Swanson M.D. 06/21/2019 12:50 PM
[2019-06-21 14:44] VITALS: PULSE 81
--- NOTE | 2019-06-21 14:51 | Cardiology Progress Note ---
Date of Service June 21, 2019 Assessment & Plan (1) Chest pain: Her chest discomfort is atypical for classic angina pectoris. She had a cardiac catheterization which revealed a patent proximal LAD stent. No other significant disease was identified. She has improved dramatically since starting colchicine and high dose aspirin. 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 (2) CAD (coronary artery disease): She had a NETO placed in the proximal LAD in the setting of an acute anterior wall LA with a ruptured plaque and thrombus. As above, recent cardiac catheterization noted a patent stent. Medical management with metoprolol tartrate, aspirin, and clopidogrel. (3) Embolic stroke: Unfortunately, she suffered a recent embolic CVA. Dr. Fairbanks's input greatly appreciated. She will have a CT angiogram of her head and neck. (4) S/P coronary artery stent placement: Drug-eluting stent placed within the proximal LAD last month in [place]. Continue dual anti-platelet therapy. (5) Cardiomyopathy: Fortunately, her left ventricular dysfunction was transient. Echocardiogram performed during this admission noted normal systolic function. (6) Dyslipidemia: Continue high dose atorvastatin. Subjective The patient is resting comfortably in bed and has had a dramatic improvement in her chest discomfort since starting colchicine. Results of her brain MRI and neurologic consultation reviewed with the patient and her . She would like to follow up with Dr. Robles as an outpatient. Physical Exam Physical Exam: In general this is a well-developed well-nourished white female in no acute distress. HEENT exam is negative. Neck is supple with full carotid upstrokes. There are no carotid bruits. Jugular venous pressure is flat at 90. There is no thyromegaly. Cardiovascular exam reveals a regular rhythm with a normal S1 and S2. No S3, S4, or murmurs are noted. Lungs are clear without rales, rhonchi, or wheezes. Abdomen is soft and nontender without bruits. Extremities reveal intact radial artery and posterior tibial pulses bilaterally. There is no peripheral edema. Results & Data Vital Signs (Past 12 Hours) Vital Signs Temp Pulse Pulse Resp BP BP Pulse Ox 06/21/19 11:09 36.9 C 58 L 16 105/67 97 06/21/19 10:22 06/21/19 08:00 69 06/21/19 07:28 37.0 C 67 17 111/67 98 Pulse Ox 06/21/19 11:09 06/21/19 10:22 98 06/21/19 08:00 06/21/19 07:28 Diagnostic Findings cardiac monitor technician notes atrial fibrillation with an occasional PAC. PG Care Time/CCT Total # of Minutes Spent Total Time Spent with Patient: Total time spent is greater than 50% in coordination of care (as documented) at patient's floor/unit and/or counseling patient: (1) CAD (coronary artery disease) Associated angina: angina presence unspecified Coronary Disease-Associated Artery/Lesion type: [place] artery [place] vs. transplanted heart: [place] heart Qualified Code(s): I25.10 - Atherosclerotic heart disease of [place] coronary artery without angina pectoris (2) Embolic stroke Precerebral and cerebral artery: unspecified precerebral artery Qualified Code(s): I63.10 - Cerebral infarction due to embolism of unspecified precerebral artery (3) Chest pain Chest pain type: unspecified Qualified Code(s): R07.9 - Chest pain, unspecified (4) Cardiomyopathy Cardiomyopathy type: ischemic Qualified Code(s): I25.5 - Ischemic cardiomyopathy
[2019-06-21] MEDS ORDERED: PHARMACIST DISCHARGE MED REC CONSULT PRN (15:20)
--- NOTE | 2019-06-21 15:34 | Pharmacy Report ---
Pharmacist Stroke Counseling - Date of Service June 21, 2019 - Scope: Pharmacy has been consulted to provide medication discharge counseling for this patient admitted with ischemic stroke s/p cardiac cath as per the Pharmacist Discharge Counseling for Stroke Patients Protocol. - Medications on Discharge: Home Medications Medication Instructions Recorded Confirmed atorvastatin 80 mg PO HS 06/18/19 06/18/19 clopidogrel 75 mg PO QAM 06/18/19 06/18/19 coenzyme Q10 [CoQ-10] 30 mg PO HS 06/18/19 06/18/19 metoprolol tartrate 25 mg PO BID 06/18/19 06/18/19 nitroglycerin 0.4 mg SUBLINGUAL UD 06/18/19 06/18/19 omega 5-rex-rgm-fish oil [Fish Oil] 2 cap PO DAILY 06/18/19 06/18/19 New Rx's Medication Instructions Recorded aspirin 325 mg PO BID #60 tab 06/21/19 colchicine [Colcrys] 0.6 mg PO DAILY #30 tab 06/21/19 furosemide 40 mg PO DAILY PRN #30 tab 06/21/19 lisinopril 2.5 mg PO DAILY #30 tab 06/21/19 pantoprazole 40 mg PO QAM #30 tab 06/21/19 - Action: The above medications, specifically ones for stroke treatment/prophylaxis, have been reviewed in detail with the patient and her prior to discharge. This includes indication, common adverse reactions, drug interactions, and medication administration. Medication counseling has been employed using the teach-back method to ensure understanding. - Outcome: The patient and her have demonstrated understanding of the medications. Please note, they are aware that the pharmacist will call them within 72 hours post-discharge to confirm that the appropriate medications are being taken and answer any further medication related questions the patient might have at that time. Contact information Individual to be contacted: self Relationship to patient (if applicable): -- Phone number: [phone] Best time to call: anytime Additional comments: Patient was on Brilinta x 2 weeks then changed to Plavix. Understands to follow- up with neurology and cardiology as she is on aspirin 325 mg PO BID for cardiac reasons. Understanding that therapy may change. Gave patient pill box. No significant other questions or concerns. Thank you for allowing pharmacy to be involved in the care of this patient. Please call [phone] or [phone] with any additional questions
--- NOTE | 2019-06-23 10:42 | Pharmacy Report ---
Pharmacist Post D/C Phone Note - Phone Note: Date of phone call: June 23, 2019. Individual with whom pharmacist spoke to: SHAILESH DALY The following questions were reviewed during the phone call with responses listed below each: Can you tell me the medications that you are currently taking as well as when and how you take each medication? -See Table Below When have you missed any doses of your medications? - none What side effects are you having from your medications, specifically, the new medications you were started on? - none What questions do you have about your medications? - none What problems are you having obtaining your medications? - none, will oyster picker colchicine today When is your next appointment with your primary care doctor? - Dr. Fairbanks's office this week or next Additional comments: - Pt was able to obtain all of her medications except for colchicine. She will pick it up today As per the Pharmacist Discharge Counseling for Stroke Patients Protocol, this phone call has been completed within 72 hours of discharge. Thank you for allowing us to be involved in the care of this patient. Thank you for allowing us to be involved in the care of this patient. - Home Medications: Home Medications Medication Instructions Recorded Confirmed atorvastatin 80 mg PO HS 06/18/19 06/18/19 clopidogrel 75 mg PO QAM 06/18/19 06/18/19 coenzyme Q10 [CoQ-10] 30 mg PO HS 06/18/19 06/18/19 metoprolol tartrate 25 mg PO BID 06/18/19 06/18/19 nitroglycerin 0.4 mg SUBLINGUAL UD 06/18/19 06/18/19 omega 6-dwr-nza-fish oil [Fish Oil] 2 cap PO DAILY 06/18/19 06/18/19 New Rx's Medication Instructions Recorded aspirin 325 mg PO BID #60 tab 06/21/19 colchicine [Colcrys] 0.6 mg PO DAILY #30 tab 06/21/19 furosemide 40 mg PO DAILY PRN #30 tab 06/21/19 lisinopril 2.5 mg PO DAILY #30 tab 06/21/19 pantoprazole 40 mg PO QAM #30 tab 06/21/19 probenecid-colchicine 1 tab PO DAILY #30 tab 06/21/19
[2019-06-23 14:16] LABS: iSTAT Venous Carbon Dioxide 27 mEq/l (24-31)
--- NOTE | 2019-06-29 05:56 | Discharge Summary ---
Date of Service date of admission - 06/18/19 date of discharge - 06/21/19 Admission HPI Per Admitting Provider 53 y/o F c/o chest pain. Pt states she has been having chest pain all summer. She was started on ranitidine initially, however this was not helpful. Her chest pain continued to worsen and she ultimately ended up admitted to [facility] s/p STEMI on 06/06. She had a stent placed in her LAD. She felt great after this. She was d/c'd on 06/08 and did well until 06/12 when she started to have ZELAYA. This progressed to the point of having dyspnea with any type of exertion and on 06/15 she started to have chest pain again. This pain was substernal as her prior chest pain had been, but it was coming and going spontaneously whereas her other chest pain ended up being constant. It is stabbing in nature and nonradiating. She was seen in the ED at [place]. CTA and cardiac work up was done all of which were negative. She was sent for f/u to her basket hand weaver yesterday. She had an ECHO in the office which showed new CHF. She was started on lasix yesterday for this. She has continued to have symptoms that are no worse but not any better. Pt denies fever, abd pain, v/c/d, LE pain or swelling. She had some double vision today and felt like "my head was in a cloud, like I had a head cold". She states she was nauseated in the ED today. 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") Discharge Exam Constitutional well developed and well nourished; no acute distress Eyes normal visual berry by confrontation, PERRL and EOM intact bilaterally; no nystagmus ENMT external ear and nose normal, oropharynx normal Respiratory normal respiratory effort, lungs clear to auscultation Cardiovascular Rate/Rhythm: regular rate and regular rhythm Heart Sounds: normal S1 and normal S2; no murmur Vessels: posterior tibial pulses present and dorsalis pedis pulses present; no JVD Extremities: no edema Chest (Breasts) Additional Comments: no reproducible chest wall tenderness to palpation Gastrointestinal (Abdomen) normal bowel sounds, soft, nontender, no hepatosplenomegaly Skin no rashes, warm and dry cath site right wrist w/o hematoma Neurologic normal touch/pain/proprioception, deep tendon reflexes 2+ bilaterally and moves all extremities; no focal motor deficits Speech / Cognition: normal speech Motor/Sensory: no pronator drift Gait: no ataxic gait Psychiatric A+Ox3, euthymic affect Discharge Data Allergies Allergy/AdvReac Type Severity Reaction Status Date / Time pineapple Allergy Severe throat Verified 05/12/19 08:28 swells up naproxen [From Aleve] Allergy Mild throat Unverified 05/12/19 08:28 swells/hives Penicillins Allergy Mild Hives Unverified 05/12/19 08:28 Consultations 1. cardiology - Jordan Robles MD / Jerry Parrish MD 2. Neurology - Efraín Fairbanks MD 3. PT, OT, speech Procedures Performed Coronary angiography: 1. Left main coronary artery: The LMCA is large in caliber. Ostial LM CA appears mildly tapered but smooth but when a 5 Swiss JL 3.5 diagnostic catheter was engaged, she developed chest discomfort and had ventricularized arterial waveform. 2. Left anterior descending: The LAD is a large caliber vessel that extends to the apex. Proximal LAD 10% stenosis (proximal to proximal LAD stent). Long proximal to mid LAD stent patent. Small D2 and D3 vessels extending from the distal LAD without significant CAD. 3. Circumflex: The circumflex is a medium caliber vessel that gives rise to a high large caliber OM1 and a small OM2. No significant CAD within the circumflex system. 4. Right coronary artery: The RCA is large and dominant. Proximal RCA 10% stenosis. Remainder of RCA, PDA, and PL branches without significant CAD. Left heart catheterization: 1. Left ventriculography was not performed. 2. Frequent ectopy was present, which may affect interpretation of waveform. 3. No aortic stenosis. Peak to peak gradient across the aortic valve was approximately 0. 4. Mildly elevated LVEDP; 17mmHg. This is after being approximately 1 L positive fluid balance after receiving IV fluids overnight. Right heart catheterization: 1. Pulmonary capillary wedge pressure normal. V-wave 14 with a mean of 8mmHg. 2. Normal pulmonary artery pressure. PA pressure 23/7 with a mean of 12mmHg. 3. Right ventricular pressure 25/0 with RV EDP of 2mmHg. 4. Right atrial pressure normal. A-wave 5 with a V-wave of 3 and a mean of 2 mmHg. 5. Cardiac output via thermodilution was 5.7 L/min, with a cardiac index of 3.5 L/min/m2. 6. PVR 0.7 Wood units. Procedure details: 1. During engagement of the left main coronary artery, there was ventricularization of the arterial waveform and she developed chest discomfort. With repositioning of the catheter, the arterial waveform remained ventricularized. Impression: 1. Patent proximal to mid LAD stent. 2. Ventricularization of the arterial waveform with engagement agent of the LMCA with a 5 Swiss catheter, which also reproduced her chest discomfort. 3. Otherwise, minimal nonobstructive CAD of the proximal RCA and proximal LAD. 4. No aortic stenosis. 5. Normal pulmonary capillary wedge pressure and PA pressure. 6. Mildly elevated LVEDP (approximately 1 L positive fluid balance after receiving IV fluids overnight). Plan: 1. Images were reviewed with Dr. Parrish of interventional Cardiology. Given her ongoing symptoms and ventricularization of the arterial waveform while engaged within the LMCA, reproducing her chest pain, concern for LMCA disease. Dr. Parrish plans to perform IVUS of the LMCA. Dr Parrish performed IVUS of LMCA -- following such no intervention was needed for left main coronary artery. Ordered Studies 1. left and right heart catheterization 2. MRI brain - IMPRESSION: 1. Few (3) punctate foci of acute infarct involving the left temporal lobe, inferior right frontal lobe, and right caudate body. The distribution suggests an embolic etiology. 2. Mild chronic small vessel ischemic change. 3. MRA brain - normal; no stenosis, aneurysm, etc. 4. carotid artery duplex exam - normal; no ICA stenosis. 5. echocardiogram - * EF 55-60% * no regional wall motion abnormalities * trace pericardial effusion Hospital Course (1) Pericardial pain: After undergoing heart catheterization by Katlyn Robles and Francois -- and finding that LAD stent was patent, no spasm was seen, and other coronaries were normal -- there became some suspicion that her chest symptom were due to post-[place] pericarditis (Татьяна's syndrome). Patient noted her symptoms were worse with laying down on her side and improved with sitting or standing. Her symptoms were also fairly constant. Recent CTA chest was negative for PE - this study had been done at [facility] earlier in the week. She had no clinical evidence of decompensated CHF while hospitalized either. Symptoms were not consistent with GI etiology or musculoskeletal etiology. The patient was initiated on high-dose asa 325mg BID and colchicine. Within 24 hours of such her chest symptoms improved, and by the time of discharge her chest symptoms were essentially resolved. At d/c will continue colchicine 0.6mg daily and continue the asa 325mg BID. Defer to cardiology the time course of the colchicine and aspirin. (2) Embolic stroke: In light of visual disturbance post-heart cath, ongoing headache, etc MRI brain was ordered and this showed b/l punctate infarcts. It was suspected that these were embolic strokes in the setting of her heart cath. Fortunately they were very tiny strokes and she should not have any sequelae from them. It is recommended she see ophthamology in follow-up bonita after discharge for dilated eye exam to r/o retinal infarcts from this event as she endorses ongoing floaters in both eyes, etc. Her visual berry were full and thus retinal detachment was not suspected. She was seen in consult by neurology. It was recommended she continue aspirin, statin, and have neurology f/u in 3-4 weeks post-discharge. She completed a stroke w/u -- carotid duplex study, MRA brain, and formal PT/OT/speech consults. All other studies were normal and all therapists cleared her for home. Neurological exam was essentially normal at discharge. (3) Headache, temporal: possibly due to b/l strokes? tension/migraine headache? side effect of nitrates? combination of factors? treated with tylenol. asa and colchicine for her suspected pericarditis also helped. long-acting nitrates were stopped. headaches resolved prior to discharge. (4) Chest pain: in setting of recent STEMI of LAD on 06/06/19, treated at [facility]. IMPROVING/RESOLVED. suspected to be pericardial in nature. she had continuous chest pain since prior to admission and during the early portion of the hospitalization. symptoms worse with laying down and laying on left side. no GERD or GI symptoms. no change in symptoms with treating for acute CHF earlier this week. CTA chest earlier this week in [place] was negative for PE. troponins negative this admission. s/p repeat heart cath this admission - LAD stent patent, some concern for LMCA disease but this was ruled out. nothing to date has altered the course of her pain. trace pericardial fluid on echo this admission. some of the features were suspicious for post-[place] pericarditis. treated her pain with aspirin 325mg BID and colchicine 0.6mg BID. SYMPTOMS IMPROVED with this regimen and she will d/c home on aspirin BID and colchicine once daily; will need close cardiology follow-up. (5) CAD (coronary artery disease): see discussion above in "chest pain." recent STEMI of LAD s/p NETO at [facility]. cont asa, statin, plavix, low-dose NEIL (if BP can tolerate) and beta sari. (6) Cardiomyopathy: ischemic. compensated clinically during the visit lasix to be used PRN for weight gain at home by report her recent EF at [facility] was in the 40-50% range echo this admission showed normalization of her EF to 55-60% (7) Dyslipidemia: cont high-intensity statin (8) GERD (gastroesophageal reflux disease): placed on PPI at discharge in light of high-dose aspirin use in conjunction with plavix Total Time Total Time Spent Total Time Spent (In Minutes): 50 Total Time Includes: Examination of the Patient, Discharge Planning, Medication Reconciliation and Communication With Other Providers Discharge Plan Discharge Items Patient Disposition: Home - Self-Care Reason For Visit: CHEST PAIN Discharge Diagnosis: 1. chest pain - thought to be due to pericarditis (inflammation of the pericardial sac covering the heart) - improving. 2. tiny ("punctate") strokes on both sides of the brain - symptoms improving. 3. headache - improved. 4. recent congestive heart failure - improved. Discharge Goals: Decrease discomfort, Diagnostic testing, Improve disease control, Learn about illness and Therapeutic intervention Activity: As commented below Activity Comment: light activities only until cleared by cardiology and neurology. Sexual Activity: Wait until after follow-up appointment Exercise/Sports: Wait until after follow-up appointment Driving/Machine Use: Resume 3 days after discharge Non-emergency contact: Primary Care Provider, Tunnel El[employer], Neurologist and Community Health Planning Director Call non-emergency contact if: you have any medication questions, your symptoms worsen, your pain is not controlled, your pain is worsening, your pain is unusual for you, your pain is concerning for you and your temperature is above 100.5 Follow-up/Referrals: Paramjit Fairbanks III, MD [Physician] - (see Dr Fairbanks from neurology in 3-4 weeks.) Jordan Robles MD [Physician] - (see Dr Robles from cardiology in 2 weeks) Luis Fernando Arenas, [Primary Care Provider] - (see Dr Arenas within 1 week) Yovani Johnson [Surgeon] - (see Dr Johnson or his partner, Dr Herrera, at [facility] for eye exam due to recent visual disturbance and strokes; please see one of them THIS WEEK.) Diet: Heart Healthy Add Provider Instructions: You were admitted with ongoing issues with chest pain. We did not find a new heart attack during this stay. Your blood work for the heart was normal. You were seen by Dr Robles and his cardiology team; repeat heart catheterization was performed. This showed that the stent was patent and working well. We did not see evidence of any spasm of any of the coronary arteries during the procedure. No other blockages were found. Following the heart catheterization we started you on high-dose aspirin and colchicine for suspected pericarditis. This is when the pericardium - the sac overlying the heart - is inflamed from your recent heart attack. Your chest symptoms gradually improved with the aspirin/colchicine. We are recommending ongoing use of both medications for several weeks (the total length of this treatment will be determined by the basket hand weaver). Also following the heart catheterization you reported seeing spots in your visual field as well as a severe headache. We pursued an MRI of the brain which did show very tiny strokes on both sides of the brain. The strokes were likely caused by tiny pieces of plaque that traveled through the circulation to the brain following your heart catheterization. Your carotid ultrasound and the MRA of the brain showed NORMAL arteries in the front of the neck, back of the neck/head, and inside the brain itself. No aneurysms were found. Additionally your repeat heart ultrasound (echo) done earlier in the stay showed that the heart pumping ability had gotten stronger over the last 2 weeks; this means the heart muscle is recovering nicely from your heart attack. Recommendations - 1. take aspirin 325mg twice daily until otherwise instructed by the basket hand weaver. 2. take colchicine 0.6mg once daily until otherwise instructed by the basket hand weaver. 3. LOWER your lisinopril to 2.5mg once daily; new prescription given. 4. TAKE pantoprazole 40mg once daily (best to take first thing in AM). This is an acid anesthesia associate to prevent stomach ulcers from the high-dose aspirin and plavix. 5. Use lasix (furosemide) diuretic on AN NEEDED BASIS only. Check your weight EVERY DAY in the morning upon awakening. If you gain more than 2-3 pounds over a 1-2 day period please START the furosemide and call the basket hand weaver. The weight gain could be a sign of fluid retention. Thus, if your weights are stable and you are feeling well you do not need to take the diuretic. 6. Again NO STRENUOUS ACTIVITIES until cleared by the basket hand weaver and the neurologist. follow-up -- see separate section. Additional stroke instructions -- Risk Factors for Stroke: You can reduce your chances of stroke by working with your medical provider to adopt a healthy lifestyle. Some specific ways to lower your chance of stroke are: * If you are a smoker, now is the time to stop smoking cigarettes * If you are diabetic, improve the control of your blood sugars * Avoid excessive amounts of alcohol * Control high blood pressure * Lose weight if you are overweight * Be sure to lead an active lifestyle * Eat a healthy diet low in salt, cholesterol and fat You should know about other risk factors for stroke that you are unable to control. These include: * Age 55 years or older * Male gender * Certain racial groups: , or / * Family History of Stroke, Mini stroke or Heart Attack * Sickle Cell Disease Who to Call and When: Medical Emergencies: Call 911 immediately if you experience any of the following warning signs and symptoms of Stroke: * Sudden numbness or weakness of the face, arm or leg, especially on one side of the body * Sudden confusion, trouble speaking or understanding * Sudden trouble seeing in one or both eyes * Sudden trouble walking, dizziness, loss of balance or coordination * Sudden severe headache with no cause Do not delay calling 911 if you experience any warning signs or symptoms of a stroke. Delay in seeking medical attention may affect what treatments can be given to you. . ACTIVITY RECOMMENDATIONS following your heart catheterization: Excess manipulation of the RIGHT wrist should be avoided for the next 48 hours. * No lifting over 2 pounds (approximately a 1/2 gallon of milk) with the utilized arm for 24 hours. * No strenuous activities especially with the right arm/hand. * Keep the site of the procedure covered with a bandage for 24 hours. *You may shower the day after the procedure. Do not take a tub bath or submerge the puncture site in water for the next 3 days. *Do not operate any motorized equipment for 3 days. SPECIAL CARE INSTRUCTIONS: The site may be slightly bruised and sore following your procedure. Should any of the following occur, contact the Dr. who performed your procedure. 1. Redness/inflammation, swelling, chills, or fever, or colored drainage at procedure site within 3-7 days after your procedure. 2. Coldness, discoloration, ongoing numbness, severe pain, or swelling. Expect mild tingling of hand and tenderness at the puncture site for up to three days. If this persists beyond three days, or other symptoms develop, notify the Dr. who performed your procedure. BLEEDING: If the procedure site on your wrist begins to bleed, do not panic 1. Place 1 or 2 fingers firmly just slightly above the insertion site to stop the bleeding. You may be able to feel your pulse as you hold pressure. 2. Lift your finger after 5 minutes to see if the bleeding has stopped. 3. Once the bleeding has stopped, gently wipe the wrist area clean with a bandage. * If the bleeding from your wrist does not stop after 10 minutes, or if there is a large amount of bleeding or spurting, call 911 (do not drive yourself to the hospital). SKIN IRRITATION: * You may experience some redness and/or swelling in the area where radiation was administered. If any skin irritation occurs, please contact your family physician. Prescriptions: New aspirin 325 mg Tablet,Delayed Release (Dr/Ec) 325 mg PO BID Qty: 60 RF: 1 colchicine [Colcrys] 0.6 mg Tablet 0.6 mg PO DAILY Qty: 30 RF: 1 pantoprazole 40 mg tablet,delayed release (DR/EC) 40 mg PO QAM Qty: 30 RF: 1 lisinopril 2.5 mg tablet 2.5 mg PO DAILY Qty: 30 RF: 2 probenecid-colchicine 500-0.5 mg tablet 1 tab PO DAILY Qty: 30 RF: 1 Continued atorvastatin 80 mg tablet 80 mg PO HS RF: 0 clopidogrel 75 mg tablet 75 mg PO QAM RF: 0 nitroglycerin 0.4 mg tablet, sublingual 0.4 mg sublingual UD RF: 0 coenzyme Q10 [CoQ-10] 30 mg Capsule 30 mg PO HS RF: 0 metoprolol tartrate 25 mg tablet 25 mg PO BID RF: 0 omega [id number] oil [Fish Oil] 1,000 mg (120 mg-180 mg) Capsule 2 cap PO DAILY RF: 0 Changed furosemide 40 mg tablet 40 mg PO DAILY PRN (Reason: weight gain) Qty: 30 RF: 0 Discontinued ranitidine HCl 150 mg Tablet 150 mg PO QAM RF: 0 Stand-Alone Forms: Medications to Prevent Stroke, Call Back Authorization, [facility]/Other Patient Handouts: Pericarditis Discharge Orders: Discharge Order (Routine); Ordered 06/21/19 Ordered By: Francisco Eden Admission Data Admit Date/Time: 06/18/19 19:34 Attending Provider: Francisco Eden Admit Provider: Guadalupe Navarrete Primary Care Provider: Luis Fernando Arenas Other Providers: Guadalupe Navarrete ; Jordan Robles ; Paramjit Fairbanks III Service: Telemetry Other Interventions: Discharge Summary Assessment (RN) Last Done: 06/21/19 14:35 Pending Studies at Discharge: No DC Date/Time DO NOT enter until pt leaves facility: 06/21/19 15:20
--- NOTE | 2019-07-27 07:38 | Coding Query ---
CODING QUERY To promote full compliance with coding requirements relating to patient care, provider participation is requested in all cases of coder operator uncertainty. Please assist us with the question(s) below: Coding Question(s): Please clarify diagnosis of embolic stroke below. Physician's Response(s): ( x) Embolic stroke complication of Cardiac Cath ( ) Emoblic Stroke not complication of cardiac Cath ( ) Other ( please specify) Thank you Vanesa Dolan Principal Diagnosis: "that condition established after study, to be chiefly responsible for occasioning the admission of the patient to the hospital for care." Co-Existing Principal Diagnosis: "when two or more diagnoses equally meet the criteria for principal diagnosis as determined by the circumstances of admission, diagnostic work up, and/or therapy provided, and the Alphabetic Index, Tabular List, or another coding guideline does not provide sequencing direction, any one of the diagnoses may be sequenced first." "When the physician has documented what appears to be a current diagnosis in the body of the record, but has not included the diagnosis in the final diagnostic statement, the physician should be asked whether the diagnosis should be added." (Source [facility]oding [facility] 2 QTR90. p3-4) LANG
== END 2019-06-21 15:20 | disposition home or self-care (01) | DRG 280 ==
LOC: ED 16:10 → 2S 19:34 → SUATTDRO 19:34 → 2S 20:58

== ENCOUNTER 2019-11-15 14:27 | Observation (INO) ==
[2019-11-15] MEDS ORDERED: NITROGLYCERIN 2% OINTMENT 30GM TUBE EXT STA (15:22)
[2019-11-15 15:45] LABS: Basophils # (auto) 0.04 K/uL (0-0.2); Basophils % (auto) 0.5 %; Eosinophils # (auto) 0.11 K/uL (0-0.5); Eosinophils % (auto) 1.4 %; Hematocrit (blood only) 39.7 % (37-47); Hemoglobin 13.6 g/dL (12.0-16.0); Immature Granulocytes # (auto) 0.01 K/uL (0.00-0.02); Immature Granulocytes % (auto) 0.1 %; Lymphocytes # (auto) 1.53 K/uL (1.2-3.4); Lymphocytes % (auto) 19.7 %; Mean Corpuscular Hemoglobin 30.8 pg (25-34); Mean Corpuscular Hgb Conc 34.3 g/dL (32-36); Mean Corpuscular Volume 89.8 fL (80-100); Mean Platelet Volume 9.2 fL (7.4-10.4); Monocytes # (auto) 0.61 K/uL (0.11-0.59); Monocytes % (auto) 7.9 %; Neutrophils # (auto) 5.47 K/uL (1.4-6.5); Neutrophils % (auto) 70.4 %; Platelet Count 247 K/uL (130-400); RDW Coefficient of Variation 12.6 % (11.5-14.5); Red Blood Count 4.42 M/uL (4.2-5.4); White Blood Count 7.77 K/uL (4.8-10.8)
[2019-11-15 16:01] LABS: Alanine Aminotransferase 51 U/L (12-78); Albumin Level 4.4 gm/dl (3.4-5.0); Aspartate Aminotransferase 29 U/L (15-37); Blood Urea Nitrogen 17 mg/dl (7-18); Calcium 8.9 mg/dl (8.5-10.1); Carbon Dioxide 32 mmol/L (21-32); Chloride 102 mmol/L (98-107); Creatinine Clr Calc Pharmacy 68.1 ml/min; Est GFR (Non-African American) 79.3; Glucose 100 mg/dl (70-99); Lipase 170 U/L (73-393); Potassium 3.5 mmol/L (3.5-5.1); Sodium 140 mmol/L (136-145)
[2019-11-15 16:06] LABS: Albumin Globulin Ratio 1.3 (0.9-2); Alkaline Phosphatase 76 U/L (45-117); Bilirubin,Total 0.4 mg/dl (0.2-1); Globulin 3.3 gm/dl (2.5-4.0); Total Protein 7.7 gm/dl (6.4-8.2); Troponin I < 0.015 ng/ml (0-0.045)
--- NOTE | 2019-11-15 16:07 | CT Scan Report ---
CT SCAN OF THE BRAIN WITHOUT IV CONTRAST CLINICAL HISTORY: Right upper extremity numbness. COMPARISON STUDY: MRI of the brain dated 06/20/2019. TECHNIQUE: Unenhanced axial CT scan of the brain is performed from the vertex to the skull base. A d ose lowering technique was utilized adhering to the principles of ALARA. CT DOSE: 614.27 mGy.cm FINDINGS: Brain parenchyma: The brain parenchyma is normal in appearance. There is no hemorrhage, mass effect, or evidence of acute territorial ischemia by CT criteria. Mckay-white matter differentiation is preser thaddeus. No extra-axial fluid collection is seen. Ventricles, sulci, cisterns: Normal in configuration. Cavum septum pellucidum is incidentally noted. Intracranial vasculature: The visualized intracranial vasculature at the skull base is normal in appe arance. Calvarium: Unremarkable. Sinuses and mastoids: The visualized paranasal sinuses are clear. There is a right mastoid effusion. The left mastoid air cells are well pneumatized. Orbits: The bony orbits are grossly intact. IMPRESSION: There is no hemorrhage, mass effect, or evidence of acute territorial ischemia by CT joslyn benson. ACT 112: Negative or not required by law. Electronically signed by: Rodrick Sanchez M.D. 11/15/2019 4:05 PM
--- NOTE | 2019-11-15 16:21 | XRay Report ---
SINGLE VIEW CHEST CLINICAL HISTORY: Atypical chest pain. FINDINGS: 2 AP, portable, upright chest radiographs are compared to study dated 11/11/2019. The examin ation is degraded by portable technique and patient rotation. The cardiomediastinal silhouette is unr emarkable. The lungs and pleural spaces are clear. No pneumothorax is seen. The bony thorax is grossl y intact. IMPRESSION: No active disease in the chest. ACT 112: Negative or not required by law. Electronically signed by: Rodrick Sanchez M.D. 11/15/2019 4:19 PM
[2019-11-15 16:27] LABS: Partial Thromboplastin Ratio 0.9; Partial Thromboplastin Time 24.4 Seconds (21.0-31.0); Prothrombin Time 10.3 Seconds (9.0-12.0)
[2019-11-15] MEDS ORDERED: fentaNYL citrate 100 MCG/2 ML VIAL IV STA (16:39)
[2019-11-15] MEDS ORDERED: ACETAMINOPHEN 325 MG TAB PO STA (16:39)
--- NOTE | 2019-11-15 18:21 | Electrocardiogram Report ---
Test Reason : Blood Pressure : / mmHG Vent. Rate : 066 BPM Atrial Rate : 066 BPM P-R Int : 162 ms QRS Dur : 096 ms QT Int : 412 ms P-R-T Axes : 073 084 062 degrees QTc Int : 431 ms Normal sinus rhythm Possible Left atrial enlargement Low voltage QRS Borderline ECG When compared with ECG of 20-JUN-2019 07:04, T wave inversion less evident in Anterolateral leads Confirmed by Jerry Stroud ([id number]) on 11/15/2019 6:20:54 PM Referred By: Michael Stroud Confirmed By:Feng Stroud
[2019-11-15] MEDS ORDERED: POTASSIUM CHLORIDE 20 MEQ TABCR PO STA (18:38)
--- NOTE | 2019-11-15 18:39 | History & Physical Report ---
Date of Service November 15, 2019 Assessment & Plan (1) Chest pain: Admit to [facility] on telemetry. Troponin x3 with EKG. Monitor electrolytes and replenish. TTE pending. Consult cardiology. If troponin negative would consider exercise stress echo Nitroglycerin paste or nitroglycerin 0.4 mf sublingual for unstable angina. Given aspirin 325 mg x 1. Continue home medicine aspirin 81 mg p.o. every morning. Atorvastatin 80 D milligrams p.o. nightly, clopidogrel 75 mg p.o. every morning. Coenzyme 1030 mg p.o. nightly. Furosemide 20 mg p.o. every morning/40 mg every other day switch to 40 mg IV daily. Continue isosorbide mononitrate 60 mg p.o. every morning. Continue Krill oil. Continue metoprolol tartrate 25 mg p.o. twice daily. DVT prophylaxis Lovenox 40 mg subcu 2 daily. Consult cardiology Full code Present on Admission?: Yes (2) CAD (coronary artery disease): As the above Present on Admission?: Yes (3) Transient ischemic attack: Patient does not have any neurological deficit at this time. 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 Will check for ultrasound of the carotids and brain MRI to rule out possible stroke versus TIA. Follow the stroke pathway without TPA Present on Admission?: Yes (4) Unstable angina: As the above Present on Admission?: Yes (5) History of myocardial infarction: Continue management as the above Present on Admission?: Yes (6) Hyperlipidemia: Lipid panel pending. Continue atorvastatin 80 mg p.o. nightly Present on Admission?: Yes (7) GERD (gastroesophageal reflux disease): Patient is not on any medicine for GERD. Started famotidine 20 mg IV twice daily. 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 Low-sodium diet Strict in and out Daily weight Monitor for volume overload. Present on Admission?: Yes History of Present Illness Chief Complaint: Chest pain Primary Care Provider: Luis Fernando Arenas DO pendingThe patient is a 54 years old female with past medical history of of [place] with 1 stent placed in [facility], coronary artery disease, cardiomyopathy, dyslipidemia, GERD, embolic stroke, who presents to the emergen cy room after starting to have a chest pain for approximately 20 to 30 minutes today around 2 PM. Patient describes her chest pain as crushing and located only in her chest without moving anywhere. Patient reports that she has some floaters in her vision around 2 PM and that went away. Patient reports in May 2019 she had first pericarditis and 2 weeks after that she developed myocardial infarction. Her LAD was 90% occluded and she was emergently catheterized and placed 1 stent. Patient have Raynolds syndrome. Patient denies any sick contact recently. Patient denies fever, chills, headache, shortness of breath, abdominal pain, frequency, urgency, syncope or near syncope. Patient denies hematuria, melena, hematemesis or hematochezia. Patient said that in May she was started on colchicine and she continued therapy for 5 months for pericarditis. She was also for 2 weeks on aspirin 325 mg twice daily for pericarditis. After stent was placed she is taking aspirin 81 and Plavix 75 mg daily along with atorvastatin 80 mg p.o. nightly. During the catheterization of her heart in May at [facility] patient had several small embolic strokes. Her function was regained again. Patient denies that she ever had any neurological deficit from the small embolic strokes. Patient was also seen 4 days ago on November 11 in the congestive heart failure clinic. BNP at that time was 43. At that time patient was recommended to continue taking Lasix 40 mg every other day and 20 mg. She was also recommended to have exercise stress echocardiogram which was scheduled for tomorrow and to have echocardiogram repeated. Concern is based on the patient history that she was gaining weight approximately 2 to 3 pounds overnight and or 5 pounds in 1 week. They recommended her low-sodium diet and less than 2000 mg/day and to limit fluid intake. Patient states that she was placed on furosemide 20 mg p.o. every morning and 40 mg p.o. every morning every other day for congestive heart failure. Patient states that she coughs up frothy sputum which is clear quite often. 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 EKG is reviewed: Shows normal sinus rhythm with ventricular rate of 73 SD interval 154 and QT interval 416. No ST segment elevation or depression. Labs are reviewed WBC 7.77, hemoglobin 13.6, hematocrit 39.7, platelets 247, PT 10.3, INR 1, APTT 24.4, sodium 140, potassium 3.5, chloride 102, carbon dioxide 32, anion gap 6, BUN 17, creatinine 0.84, GFR 79.3, calcium 8.9, magnesium, BNP pending C-reactive protein 0.43, total protein 7.7, albumin 4.4, globulin 3.3, TSH pending. Cholesterol from September 2019 triglycerides 150, cholesterol 154, LDL 60, VLDL 30, HDL 64, cholesterol HDL ratio 2. Chest x-rays shows no active disease in the chest. CT of the head shows: There is no hemorrhage, mass-effect or evidence of acute territorial ischemia by CT criteria. A decision was made to admit patient at [facility] on telemetry for observation and for chest pain and to rule acute coronary syndrome and or transient ischemic attack or stroke. Allergies Allergy/AdvReac Type Severity Reaction Status Date / Time pineapple Allergy Severe throat Verified 11/15/19 15:20 swells up naproxen [From Aleve] Allergy Mild throat Verified 11/15/19 15:20 swells/hives Penicillins Allergy Mild Hives Verified 11/15/19 15:20 Home Medications Home Medications Medication Instructions Recorded Confirmed Type atorvastatin 80 mg PO HS 06/18/19 11/15/19 History clopidogrel 75 mg PO QAM 06/18/19 11/15/19 History coenzyme Q10 [CoQ-10] 30 mg PO HS 06/18/19 11/15/19 History nitroglycerin 0.4 mg SUBLINGUAL DIRECTED PRN 06/18/19 11/15/19 History metoprolol tartrate 25 mg tablet 25 mg PO BID #60 tab 09/08/19 11/15/19 Rx isosorbide mononitrate 30 mg 60 mg PO QAM tab 11/11/19 11/15/19 History tablet,extended release 24 hr aspirin 81 mg PO QAM 11/15/19 11/15/19 History furosemide 20 mg PO QAM 11/15/19 11/15/19 History krill oil 0 mg PO QAM 11/15/19 11/15/19 History Past Med/Surg History Medical History CAD (coronary artery disease) Cardiomyopathy Chest pain Dyslipidemia (Chronic) Embolic stroke patient denies. GERD (gastroesophageal reflux disease) (Chronic) Headache, temporal History of pericarditis 06/19/19 Hx of menorrhagia Hyperlipidemia (Chronic) Inconclusive mammogram Myocardial infarction Transient ischemic attack (TIA) x3 "mini strokes" during cardiac cath 06/19/19. followed with Dr. Fairbanks. minor vision problems, no other problems. Urethral diverticulum Excision of Urethral Diverticulum Uterine leiomyoma Vaginitis Surgical History History of (Resolved) Hx of lithotripsy 1992 S/P cardiac cath 06/19/19 Dr. Robles & Dr. Parrish left and right no stents @ [facility] S/P coronary artery stent placement x1 drug-eluting stent (LAD) placed 06/06/19 at Pending sale to [facility]. Following with Dr. Robles. Status post hysteroscopic ablation of endometrium 08/19/[address] Gee Family History Father Family history of cardiac disorder Myocardial infarction Diabetes Type 2, insulin dependent Mother Family history of breast cancer Family history of cardiac disorder Myocardial infarction Lung cancer Brother Family history of alcohol abuse Family history of cardiac disorder Family history of depression Grandmother (Maternal) Family history of breast cancer Other Coronary heart disease Heart disease Hypertension Social History Preferred Language: Burkin[place] Communication Ability: Effective Visual Impairment: Partially Limited Hearing Ability: Normal Property Disposal Manager Required: No Beliefs That Will Affect Care: None marital status: Current Living Situation: Spouse and Family current occupational status: employed 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 Hx Substance Use: No Dental Care, Regularly: No Physical Activity Frequency: Daily Review of Systems Review of Systems: All systems reviewed & are unremarkable except as noted in HPI & below Physical Exam Constitutional: WD/WN, vitals as above well developed, well nourished and + obese Eyes: PERRL, conjunctivae normal, anicteric sclerae ENMT: external ear and nose normal, oropharynx normal Neck: trachea midline, no thyromegaly Respiratory: normal respiratory effort, lungs clear to auscultation Cardiovascular: RRR, no murmur, no edema Gastrointestinal (Abdomen): normal bowel sounds, soft, nontender, no hepatosplenomegaly Musculoskeletal: no cyanosis or clubbing, extremities motor strength 5/5 Skin: no rashes, warm and dry Neurologic: patellar DTR's 2+ bilat, sensation intact Psychiatric: A+Ox3, euthymic affect Lymphatic: no cervical or axillary lymphadenopathy Results & Data Vital Signs (Past 12 Hours) Vital Signs Temp Pulse Pulse Resp BP BP Pulse Ox 11/15/19 16:00 69 17 128/83 99 11/15/19 15:30 74 18 143/80 H 99 11/15/19 14:39 36.8 C 76 16 148/86 H 100 Code Status & VTE Plan Code Status Full code VTE Prophylaxis Plan VTE Prophylaxis will be ordered: Yes PG Care Time/CCT Total # of Minutes Spent Total Time Spent with Patient: Total time spent is greater than 50% in coordination of care (as documented) at patient's floor/unit and/or counseling patient: Coding Level of Care Code 55525 Initial Inpt Care Lvl 3 Diagnoses Chest pain R07.9 CAD (coronary artery disease) I25.10 Coronary Disease-Associated Artery/Lesion type: [place] artery [place] vs. transplanted heart: [place] heart Associated angina: angina presence unspecified Transient ischemic attack G45.9 Unstable angina I20.0 History of myocardial infarction I25.2 Hyperlipidemia E78.5 GERD (gastroesophageal reflux disease) K21.9 Esophagitis presence: esophagitis presence not specified Smith syndrome M35.8 Congestive heart failure I50.9 (1) CAD (coronary artery disease) Coronary Disease-Associated Artery/Lesion type: [place] artery [place] vs. transplanted heart: [place] heart Associated angina: angina presence unspecified Qualified Code(s): I25.10 - Atherosclerotic heart disease of [place] coronary artery without angina pectoris (2) GERD (gastroesophageal reflux disease) Esophagitis presence: esophagitis presence not specified Qualified Code(s): K21.9 - Gastro-esophageal reflux disease without esophagitis
[2019-11-15 19:16] LABS: Magnesium 2.3 mg/dl (1.8-2.4); Thyroid Stimulating Hormone 1.81 uIu/ml (0.300-4.500)
--- NOTE | 2019-11-15 20:18 | Magnetic Resonance Report ---
MR brain wo con HISTORY: 54 years-old Female TIA v stroke acute strokelike symptoms COMPARISON: Head CT of same day, brain MRI 06/20/2019 TECHNIQUE: Multiplanar multisequence MRI of the brain obtained without the use of IV contrast. FINDINGS: Cavum vergae. No restricted diffusion to suggest acute or subacute infarction. Midline structures inc luding the corpus callosum, brainstem, optic chiasm, pituitary and pineal glands appear unremarkable on the sagittal T1 series. There is no cerebellar tonsillar herniation. Degenerative changes are note d about the imaged cervical spine. There is no acute intracranial hemorrhage, midline shift, abnormal extra-axial collection, hydrocepha [place] or intracranial mass. Mild patchy T2/FLAIR hyperintensities within the subcortical and to lesser extent deep white matter redemonstrated suggestive of chronic microvascular ischemic disease. The flory or flow voids at the level of the skull base appear patent. Trace left and moderate right mastoid eff usions. Mild mucosal thickening of the ethmoid air cells and maxillary sinuses. The skull, orbits and soft tissues are unremarkable. IMPRESSION: 1. No acute intracranial abnormality, specifically there is no evidence of acute or subacute infarcti on. 2. Mild T2/FLAIR hyperintensities within the white matter of the cerebral hemispheres redemonstrated suggestive of chronic microvascular ischemic disease. 3. Right greater than left mastoid effusions with mild paranasal sinus disease incidentally noted. ACT 112: Negative or not required by law. The above report was generated using voice recognition software. It may contain grammatical, syntax o r spelling errors. Electronically signed by: Bob Ghosh M.D. 11/15/2019 8:17 PM
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
--- NOTE | 2019-11-15 20:40 | Ultrasound Report ---
US carotid doppler BI CLINICAL HISTORY: 54 years-old Female with TIA v stroke. Acute strokelike symptoms COMPARISON: Carotid ultrasound 06/21/2001 TECHNIQUE: Multiple real time sonographic images of the carotid bifurcations were obtained assessing loyola scale, color Doppler and spectral wave form appearance FINDINGS: RIGHT CAROTID: The peak systolic velocity within the right ICA [id number] cm/sec. The end diastolic velocity measured 16 cm/sec. The ICA to CCA ratio measured 0.8 which correlates with a stenosis of 0-50%. No significant plaque formation of the carotid vessels. LEFT CAROTID: The peak systolic velocity within the left ICA [id number] cm/sec. The end diastolic v elocity measured 31 cm/sec. The ICA to CCA ratio measured 0.85 which correlates with a stenosis of 0- 50%. No significant plaque formation of the carotid vessels. There is normal antegrade vertebral flow bilaterally. IMPRESSION: 1. No hemodynamically stenosis or significant atherosclerotic plaquing. 2. Normal antegrade vertebral flow bilaterally. ACT 112: Negative or not required by law. The above report was generated using voice recognition software. It may contain grammatical, syntax o r spelling errors. Electronically signed by: Bob Ghosh M.D. 11/15/2019 8:39 PM
[2019-11-15] MEDS ORDERED: POLYETHYLENE (MIRALAX) 17 GM PACK PO PRN (20:44)
[2019-11-15] MEDS ORDERED: ENOXAPARIN INJ 40 MG/0.4 ML SYR SQ SCH (20:44)
[2019-11-15] MEDS ORDERED: MoRPHine SULFATE 2 MG/ML CARP IV PRN (20:44)
[2019-11-15] MEDS ORDERED: ACETAMINOPHEN 325 MG TAB PO PRN (20:44)
[2019-11-15] MEDS ORDERED: NITROGLYCERIN SL 0.4 MG/TAB TAB SL PRN ×2 (20:44)
[2019-11-15] MEDS ORDERED: ONDANSETRON INJ 2 MG/ML 2 ML VIAL IV PRN (20:44)
[2019-11-15] MEDS ORDERED: ALUMINUM/MAGNESIUM SUSP 30 ML UDC PO PRN (20:44)
[2019-11-15] MEDS ORDERED: MAGNESIUM HYDROXIDE SUSP 30 ML UDC PO PRN (20:44)
[2019-11-15] MEDS ORDERED: ATORVASTATIN 40 MG TAB PO SCH (21:00)
[2019-11-15] MEDS ORDERED: NON-FORMULARY MEDICATION (Coenzyme Q10 [Coq-10] 30 MG) PO SCH (21:00)
[2019-11-15] MEDS: METOPROLOL TARTRATE 25 MG TAB PO SCH (22:40)
[2019-11-15] MEDS: NITROGLYCERIN 2% OINTMENT 30GM TUBE EXT SCH (22:42)
[2019-11-15] MEDS: CLOPIDOGREL BISULFATE 75 MG TAB PO SCH (22:50)
[2019-11-15] MEDS: ASPIRIN 325 MG ECTAB PO SCH (22:50)
[2019-11-16 03:00] LABS: Basophils # (auto) 0.04 K/uL (0-0.2); Basophils % (auto) 0.6 %; Eosinophils # (auto) 0.12 K/uL (0-0.5); Eosinophils % (auto) 1.8 %; Hematocrit (blood only) 35.5 % (37-47); Hemoglobin 12.1 g/dL (12.0-16.0); Immature Granulocytes # (auto) 0.01 K/uL (0.00-0.02); Immature Granulocytes % (auto) 0.1 %; Lymphocytes # (auto) 2.24 K/uL (1.2-3.4); Lymphocytes % (auto) 33.5 %; Mean Corpuscular Hemoglobin 30.6 pg (25-34); Mean Corpuscular Hgb Conc 34.1 g/dL (32-36); Mean Corpuscular Volume 89.9 fL (80-100); Mean Platelet Volume 9.4 fL (7.4-10.4); Monocytes # (auto) 0.67 K/uL (0.11-0.59); Platelet Count 223 K/uL (130-400); RDW Coefficient of Variation 12.6 % (11.5-14.5); Red Blood Count 3.95 M/uL (4.2-5.4); White Blood Count 6.68 K/uL (4.8-10.8)
[2019-11-16 03:22] LABS: Alanine Aminotransferase 44 U/L (12-78); Albumin Level 3.7 gm/dl (3.4-5.0); Aspartate Aminotransferase 23 U/L (15-37); BUN Creatinine Ratio 21.1 (10-20); Blood Urea Nitrogen 16 mg/dl (7-18); Calcium 8.8 mg/dl (8.5-10.1); Carbon Dioxide 31 mmol/L (21-32); Chloride 106 mmol/L (98-107); Creatinine Clr Calc Pharmacy 74.6 ml/min; Est GFR (African American) 103.8; Est GFR (Non-African American) 89.6; Glucose 87 mg/dl (70-99); Potassium 3.8 mmol/L (3.5-5.1); Sodium 140 mmol/L (136-145)
[2019-11-16 03:27] LABS: Albumin Globulin Ratio 1.2 (0.9-2); Alkaline Phosphatase 72 U/L (45-117); Bilirubin,Total 0.5 mg/dl (0.2-1); Chol HDL Ratio 2; Cholesterol 139 mg/dl (0-200); Globulin 3.1 gm/dl (2.5-4.0); HDL Cholesterol 68 mg/dl; LDL Cholesterol Calculated 39 mg/dl; Total Protein 6.8 gm/dl (6.4-8.2); Triglycerides 159 mg/dl (0-150); Troponin I < 0.015 ng/ml (0-0.045); VLDL Cholesterol 32 mg/dl
[2019-11-16] MEDS: NITROGLYCERIN 2% OINTMENT 30GM TUBE EXT SCH ×3 (04:12→15:54)
[2019-11-16 05:58] LABS: Estimated Average Glucose 108 mg/dl; Hemoglobin A1C 5.4 % (4.5-5.6)
--- NOTE | 2019-11-16 07:57 | Hospitalist Progress Note ---
Date of Service November 16, 2019 Assessment & Plan (1) Chest pain: Continue admit to [facility] on telemetry. Troponin x3 all negative, Monitor electrolytes and replenish. TTE: Normal left ventricular size and systolic function. EF 55 to 60%. No regional wall motion abnormality. No left ventricular hypertrophy. No significant diastolic dysfunction. Mild mitral regurgitation. No significant change from limited echo June 19, 2019. Appreciate cardiology recommendations Normal exercise echocardiogram without evidence of inducible ischemia. Nitroglycerin paste or nitroglycerin 0.4 mf sublingual for unstable angina. Given aspirin 325 mg x 1. Elevated triglycerides started fish oil twice daily p.o. Continue home medicine aspirin 81 mg p.o. every morning. Started PPI for atypical chest pain possibly due to GERD. Atorvastatin 80 D milligrams p.o. nightly, clopidogrel 75 mg p.o. every morning. Coenzyme 1030 mg p.o. nightly. Furosemide 20 mg p.o. every morning/40 mg every other Continue isosorbide mononitrate 60 mg p.o. every morning. Continue Krill oil. Continue metoprolol tartrate 25 mg p.o. twice daily. DVT prophylaxis Lovenox 40 mg subcu 2 daily. Consult cardiology Full code (2) CAD (coronary artery disease): As the above (3) Transient ischemic attack: Patient does not have any neurological deficit at this time. 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 No acute findings on MRI of the brain and ultrasound of the carotids bilateral. Issue resolved (4) Unstable angina: As the above, resolved (5) History of myocardial infarction: Continue management as the above (6) Hyperlipidemia: Reviewed lipid panel. Elevated triglycerides. HDL cholesterol only 39. Continue atorvastatin 80 mg p.o. nightly Started fish oil for elevated triglycerides of 159. (7) GERD (gastroesophageal reflux disease): Patient is not on any medicine for GERD. Patient switched from IV famotidine to pantoprazole 40 mg p.o. daily. 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 Cardiology recommended noncardiac evaluation such as further pulmonary eval uation. She can continue on Lasix 20 mg p.o. daily . Her BNP is normal x2 . There is no evidence of congestive heart failure. Patient recommended to replenish magnesium and potassium daily since she is on Lasix. There is no volume overload. (10) Elevated C-reactive protein (CRP): Mildly elevated CRP 0.43. Patient referred to rheumatology for further ev aluation and treatment. Present on Admission?: Yes (11) Family history of stroke: Patient states that she has strong family history of females dying in early age of stroke or becoming disabled. Patient was requesting to be on anticoagulation. The case was discussed with Dr. Rivero and she recommended to do hyperco agulation evaluation. Those labs are pending except for Antithrombin 3 which did not draw since patient is on Lovenox for prophylaxis of DVT. Patient was recommended to do it with her PCP in 7 to 10 days when she is off of Lovenox Present on Admission?: Yes Subjective Patient seen and examined at the bedside. No acute event overnight. MRI of the brain negative for new event. Patient denies any other chest pain since last night. Patient denies fever, chills, abdominal pain, frequency, urgency, syncop e or near syncope. Appreciate cardiology recommendations. Review of Systems Review of Systems: All systems reviewed & are unremarkable except as noted in HPI & below Physical Exam Constitutional: WD/WN, vitals as above well developed, well nourished and + obese Eyes: PERRL, conjunctivae normal, anicteric sclerae ENMT: external ear and nose normal, oropharynx normal Neck: trachea midline, no thyromegaly Respiratory: normal respiratory effort, lungs clear to auscultation Cardiovascular: RRR, no murmur, no edema Gastrointestinal (Abdomen): normal bowel sounds, soft, nontender, no hepatosplenomegaly Musculoskeletal: no cyanosis or clubbing, extremities motor strength 5/5 Skin: no rashes, warm and dry Neurologic: patellar DTR's 2+ bilat, sensation intact Psychiatric: A+Ox3, euthymic affect Lymphatic: no cervical or axillary lymphadenopathy Results & Data Vital Signs (Past 12 Hours) Vital Signs Temp Pulse Pulse Resp BP Pulse Ox 11/16/19 07:37 36.7 C 59 L 20 118/74 97 11/16/19 07:36 63 11/16/19 02:54 36.8 C 56 L 15 107/65 98 11/16/19 00:40 73 11/15/19 23:11 36.8 C 59 L 15 125/75 99 PG Care Time/CCT Total # of Minutes Spent Total Time Spent with Patient: Total time spent is greater than 50% in coordination of care (as documented) at patient's floor/unit and/or counseling patient: Coding Level of Care Code 14922 Subseq Hosp Care Lvl 3 Diagnoses Chest pain R07.9 CAD (coronary artery disease) I25.10 Associated angina: angina presence unspecified Coronary Disease-Associated Artery/Lesion type: [place] artery [place] vs. transplanted heart: [place] heart Transient ischemic attack G45.9 Unstable angina I20.0 History of myocardial infarction I25.2 Hyperlipidemia E78.5 GERD (gastroesophageal reflux disease) K21.9 Esophagitis presence: esophagitis presence not specified Smith syndrome M35.8 Congestive heart failure I50.9 Elevated C-reactive protein (CRP) R79.82 Family history of stroke Z82.3 (1) CAD (coronary artery disease) Associated angina: angina presence unspecified Coronary Disease-Associated A rtery/Lesion type: [place] artery [place] vs. transplanted heart: [place] heart Qualified Code(s): I25.10 - Atherosclerotic heart disease of [place] coronary artery without angina pectoris (2) GERD (gastroesophageal reflux disease) Esophagitis presence: esophagitis presence not specified Qualified Code(s): K21.9 - Gastro-esophageal reflux disease without esophagitis
[2019-11-16] MEDS: ASPIRIN 325 MG ECTAB PO SCH (08:13)
[2019-11-16] MEDS: CLOPIDOGREL BISULFATE 75 MG TAB PO SCH (08:13)
[2019-11-16] MEDS: METOPROLOL TARTRATE 25 MG TAB PO SCH (08:14)
[2019-11-16] MEDS ORDERED: OMEGA-3 (PURIFIED FISH OIL) 1 GM CAP PO SCH (09:00)
[2019-11-16] MEDS ORDERED: ISOSORBIDE MONO EXTENDED REL 60 MG TABCR PO SCH (09:00)
[2019-11-16] MEDS ORDERED: ASPIRIN 81 MG ECTAB PO SCH (09:00)
[2019-11-16] MEDS ORDERED: FUROSEMIDE 20 MG TAB PO SCH (09:00)
[2019-11-16] MEDS ORDERED: KRILL OIL PO SCH (09:00)
--- NOTE | 2019-11-16 09:20 | Cardiology Consultation ---
Date of Consultation November 16, 2019 Assessment & Plan (1) Chest pain: (2) S/P coronary artery stent placement: (3) SOB (shortness of breath): (4) CAD (coronary artery disease): ASSESSMENT/PLAN: 1. CAD (coronary artery disease) s/p LAD PCI with drug-eluting stent in May of 2019 in the setting of STEMI with ruptured plaque and thrombus. No definite angina. Symptoms are atypical. Continue aspirin 81 mg daily indefinitely. Continue Plavix for at least 1 year following PCI. Brilinta had been discontinued by [facility] for possible cause of shortness of breath. Continue high-intensity statin therapy. Continue beta-sari. 2. Chest pain: There was concern for possible pericarditis and therefore she was placed on 3 months of colchicine. Her symptoms improved but then have worsened off of colchicine. Her symptoms are not consistent with pericarditis. She has had multiple different types of chest discomfort and her symptoms have been chronic and reoccurring. Stress echo ordered given her history however her symptoms are not likely cardiac in nature based on her description and objective findings with negative troponin despite long-lasting symptoms, negative BNP, normal echo, and unremarkable ECG. If stress echo is unremarkable, recommend further evaluation by hospitalist service for her atypical chest pain. Consider PPI. Possible inflammatory issue. 3. Dyslipidemia: Continue high-intensity statin therapy. 4. Embolic stroke: She developed visual symptoms following cardiac catheterization in 2019. 5. Shortness of breath: Etiology uncertain. She appears euvolemic. She has had 2 BNPs in the past week, both of which are less than 50. Heart failure is very unlikely. Diastolic dysfunction normal on echo. Recommend noncardiac evaluation, such as further pulmonary evaluation. If she feels better on Lasix, can continue 20 mg of Lasix. 6. Disposition: Plan care discussed with Dr. Thomas, other primary hospitalist service. Please call with any other questions or concerns. If she remains hospitalized, I will be away from the hospital tomorrow. Thank you for allowing me to participate in the care of your patient. Please call for any other questions or concerns. Sincerely, Isidro Robles M.D. History of Present Illness Reason for Consultation: Chest pain Requesting Physician: Dr. Thomas Attending Physician: Padmini Thomas MD History of Present Illness Mrs. Ram is a very pleasant 54-year-old female with a history significant for CAD status post at proximal LAD STEMI status post PCI in 06/06/2019 at [facility], dyslipidemia, chest pain, and embolic stroke. In April of 2019, she had unremarkable stress echo exercising nearly 10 minutes without chest discomfort. Unfortunately on 06/06/2019, she had an acute ruptured plaque within her proximal LAD while shopping in the [place] area and underwent emergent PCI. She then continued to struggle with chest discomfort and also shortness of breath. She had an elevated BNP as an outpatient and was diagnosed with heart failure by [facility]. She was placed on Lasix, but had no improvement in her symptoms. She was then advised to go to the ER and was admitted to [facility] on 06/18/2019. Her troponin remain within normal limi ts. She underwent cardiac catheterization which demonstrated patent LAD stent. Unfortunately, she developed visual complaints and headache following the procedure and was eventually found to have acute stroke, involving the left temporal lobe, inferior right frontal lobe, and right caudate body. She was evaluated by Neurology. She was placed on medical therapy for possible pericarditis, with improvement in her chest discomfort. She has had the following studies/procedures: 1. Stress echo 05/07/2019: No ischemic changes noted at 93% MPHR. Negative ECG at 93%. Appropriate blood pressure response. 9 minutes 49 seconds Catracho protocol. Resting EF 60-65%. No wall motion abnormalities. No significant diastolic dysfunction. No significant valvular abnormalities. 2. Cardiac catheterization 06/06/2019 [facility]: Proximal LAD 99% acute ruptured plaque with thrombus and MATTHEW 2 flow in mid to distal LAD. EF 45%. Underwent PCI with 3 x 33 mm Xience NETO. No other CAD reported. 3. Echo 06/06/2019 [facility]:Normal left ventricular size with severely hypokinetic apex and mid to distal anteroseptum, anterior wall. EF 40-45%. Type 1 diastolic dysfunction. 4. Echo 06/17/2019 [facility]: Reported distal anteroseptal hypokinesis. LVEF 45%. Type 1 diastolic dysfunction. No significant valvular abnormalities. 5. Echo 06/19/2019: Normal LV size, wall motion, systolic function. EF 55-60%. No LVH. Limited echo. 6. Cardiac catheterization 06/19/2019: LMCA ostium appears mildly tapered but smooth. When engaged with a 5 [place] diagnostic catheter, she developed chest discomfort and had ventricularized arterial waveform. This was investigated by Dr. Parrish with IVUS (no significant stenosis). Proximal LAD 10%. Proximal to mid LAD stent patent. Dominant RCA. Proximal RCA 10%. LVEDP 17 after 1 L positive fluid balance from IV fluids. PCWP 8. PA pressure 23/7 with a mean of 12. Cardiac index 3.5 via thermodilution. PVR 0.7. She recently stops taking colchicine after several months therapy for possible pericarditis. Shortly thereafter she developed chest discomfort. She describes several different pains and was seen in the Heart failure Clinic as she also described to 7 lb weight gain and the feeling as though she was drowning. She was placed on Lasix and has been taking 20 mg, losing 5 of the 7 lb that she had gained. She states that she typically feels well overnight but did have 1 night where she felt like she was drowning in the middle of the night. Since the Lasix, this has subsided. She now feels well in the morning but will notice that her hands are swollen. Approximately 1 hour later she feels like she is drowning and has a cough productive of clear sputum. She also has been experiencing a burning and chest pressure that lasts all day long since last weekend. It is worse while leaning forward and yesterday she was getting her nails done while leaning forward when the pain worsened. She also had dizziness, headache, and felt cold and clammy. She noticed floaters in her eyes and felt as though she may pass out. She then came to the emergency department for further evaluation. Her symptoms improved significantly while outside in the cold air. She states that she is experiencing angina which she describes as a right shoulder blade pain and also a pain underneath her left breast. This symptom lasts only a couple of minutes but can recur throughout the day. She then described another pain which is a focal left-sided chest pain if she lays on her left side which she believes felt like her prior myocardial infarction. Despite continued symptoms, her troponins have remained negative. Her BNP was 49. It was 43 earlier last week when she was seen in the Heart failure Clinic for concern of heart failure. She states that she continues to walk and play volleyball 3-4 days per week as well as doing weight training. With exertion, her symptoms actually feel better. She denies syncope, palpitations, abdominal pain, nausea, vomiting, melena, hematochezia, hematuria, or other bleeding. She had very mild ankle swelling on 1 occasion but otherwise has not had any lower extremity edema. She has not not ed any relation with her symptoms to food. She had been on ranitidine in the past Review of systems: As above. Review of systems otherwise negative/unremarkable. Family history: Father with CAD. Brother with CAD and PCI at the age of 49. Social history: She denies tobacco or drug abuse. Occasional alcohol. She is and lives at home with her , Syed. She has 2 grown daughters. Grandchildren. 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 Her daughter, Chey, accompanies her at the bedside. Allergies Allergy/AdvReac Type Severity Reaction Status Date / Time pineapple Allergy Severe throat Verified 11/15/19 15:20 swells up naproxen [From Aleve] Allergy Mild throat Verified 11/15/19 15:20 swells/hives Penicillins Allergy Mild Hives Verified 11/15/19 15:20 Home Medications Home Medications Medication Instructions Recorded Confirmed Type atorvastatin 80 mg PO HS 06/18/19 11/15/19 History clopidogrel 75 mg PO QAM 06/18/19 11/15/19 History coenzyme Q10 [CoQ-10] 30 mg PO HS 06/18/19 11/15/19 History nitroglycerin 0.4 mg SUBLINGUAL DIRECTED PRN 06/18/19 11/15/19 History metoprolol tartrate 25 mg tablet 25 mg PO BID #60 tab 09/08/19 11/15/19 Rx isosorbide mononitrate 30 mg 60 mg PO QAM tab 11/11/19 11/15/19 History tablet,extended release 24 hr aspirin 81 mg PO QAM 11/15/19 11/15/19 History furosemide 20 mg PO QAM 11/15/19 11/15/19 History krill oil 0 mg PO QAM 11/15/19 11/15/19 History Patient History Medical History CAD (coronary artery disease) Cardiomyopathy Chest pain Dyslipidemia (Chronic) Embolic stroke patient denies. GERD (gastroesophageal reflux disease) (Chronic) Headache, temporal History of pericarditis 06/19/19 Hx of menorrhagia Hyperlipidemia (Chronic) Inconclusive mammogram Myocardial infarction Transient ischemic attack (TIA) x3 "mini strokes" during cardiac cath 06/19/19. followed with Dr. Fairbanks. minor vision problems, no other problems. Urethral diverticulum Excision of Urethral Diverticulum Uterine leiomyoma Vaginitis Surgical History History of (Resolved) Hx of lithotripsy 1992 S/P cardiac cath 06/19/19 Dr. Robles & Dr. Parrish left and right no stents @ [facility] S/P coronary artery stent placement x1 drug-eluting stent (LAD) placed 06/06/19 at [facility]. Following with Dr. Robles. Status post hysteroscopic ablation of endometrium 08/19/[address] 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 Hx Substance Use: No Dental Care, Regularly: No Physical Activity Frequency: Daily Physical Exam Physical Exam: Gen.: No acute distress. Alert and oriented. HEENT: Anicteric sclera. Neck: No JVD. No bruit. Normal carotid upstrokes bilaterally. Cardiac: PMI was nondisplaced. No ventricular heave. Regular. No ectopy. Normal S1-S2. No murmurs, rubs, or gallops. Pulmonary: Clear to auscultation bilaterally without wheezes, rales, or rhonchi. Abdomen: Soft, nontender, nondistended, with normoactive bowel sounds. No bruits noted. Extremities: 2+ radial pulses bilaterally. 2+ posterior tibialis pulses bilaterally. No edema or cyanosis. Psychiatric: Affect appears appropriate. Chest: Nontender to palpation. Results & Data Vital Signs (Past 12 Hours) Vital Signs Temp Pulse Pulse Pulse Resp BP Pulse Ox 11/16/19 08:14 73 11/16/19 07:37 36.7 C 59 L 20 118/74 97 11/16/19 07:36 63 11/16/19 02:54 36.8 C 56 L 15 107/65 98 11/16/19 00:40 73 11/15/19 23:11 36.8 C 59 L 15 125/75 99 Laboratory Results Laboratory Results - last 24 hr 11/15/19 11/15/19 11/15/19 15:35 15:35 15:35 WBC 7.77 RBC 4.42 Hgb 13.6 Hct 39.7 MCV 89.8 MCH 30.8 MCHC 34.3 RDW Std Deviation 41.0 RDW Coeff of Lalo 12.6 Plt Count 247 MPV 9.2 Immature Gran % (Auto) 0.1 Neut % (Auto) 70.4 Lymph % (Auto) 19.7 Miner % (Auto) 7.9 Eos % (Auto) 1.4 Baso % (Auto) 0.5 Immature Gran # (Auto) 0.01 Neut # (Auto) 5.47 Lymph # (Auto) 1.53 Miner # (Auto) 0.61 H Eos # (Auto) 0.11 Baso # (Auto) 0.04 PT 10.3 INR 1.0 APTT 24.4 PTT Ratio 0.9 Sodium 140 Potassium 3.5 Chloride 102 Carbon Dioxide 32 Anion Gap 6.0 BUN 17 Creatinine 0.84 Est Cr Clr Drug Dosing 68.1 Est GFR ( Amer) 92.0 Est GFR (Non-Af Amer) 79.3 BUN/Creatinine Ratio 20.0 Glucose 100 H Estimat Average Glucose Hemoglobin A1c Calcium 8.9 Magnesium Total Bilirubin 0.4 AST 29 ALT 51 Alkaline Phosphatase 76 Troponin I < 0.015 NT-Pro-B Natriuret Pep Total Protein 7.7 Albumin 4.4 Globulin 3.3 Albumin/Globulin Ratio 1.3 Triglycerides Cholesterol LDL Cholesterol, Calc VLDL Cholesterol, Calc HDL Cholesterol Cholesterol/HDL Ratio Lipase 170 TSH 11/15/19 11/15/19 11/15/19 15:35 21:01 21:01 WBC RBC Hgb Hct MCV MCH MCHC RDW Std Deviation RDW Coeff of Lalo Plt Count MPV Immature Gran % (Auto) Neut % (Auto) Lymph % (Auto) Miner % (Auto) Eos % (Auto) Baso % (Auto) Immature Gran # (Auto) Neut # (Auto) Lymph # (Auto) Miner # (Auto) Eos # (Auto) Baso # (Auto) PT INR APTT PTT Ratio Sodium Potassium Chloride Carbon Dioxide Anion Gap BUN Creatinine Est Cr Clr Drug Dosing Est GFR ( Amer) Est GFR (Non-Af Amer) BUN/Creatinine Ratio Glucose Estimat Average Glucose 108 Hemoglobin A1c 5.4 Calcium Magnesium 2.3 Total Bilirubin AST ALT Alkaline Phosphatase Troponin I < 0.015 NT-Pro-B Natriuret Pep 49 Total Protein Albumin Globulin Albumin/Globulin Ratio Triglycerides Cholesterol LDL Cholesterol, Calc VLDL Cholesterol, Calc HDL Cholesterol Cholesterol/HDL Ratio Lipase TSH 1.810 11/16/19 11/16/19 11/16/19 02:42 02:42 02:42 WBC 6.68 RBC 3.95 L Hgb 12.1 Hct 35.5 L MCV 89.9 MCH 30.6 MCHC 34.1 RDW Std Deviation 41.0 RDW Coeff of Lalo 12.6 Plt Count 223 MPV 9.4 Immature Gran % (Auto) 0.1 Neut % (Auto) 54.0 Lymph % (Auto) 33.5 Miner % (Auto) 10.0 Eos % (Auto) 1.8 Baso % (Auto) 0.6 Immature Gran # (Auto) 0.01 Neut # (Auto) 3.60 Lymph # (Auto) 2.24 Miner # (Auto) 0.67 H Eos # (Auto) 0.12 Baso # (Auto) 0.04 PT INR APTT PTT Ratio Sodium 140 Potassium 3.8 Chloride 106 Carbon Dioxide 31 Anion Gap 3.0 BUN 16 Creatinine 0.76 Est Cr Clr Drug Dosing 74.6 Est GFR ( Amer) 103.8 Est GFR (Non-Af Amer) 89.6 BUN/Creatinine Ratio 21.1 H Glucose 87 Estimat Average Glucose Cancelled Hemoglobin A1c Cancelled Calcium 8.8 Magnesium Total Bilirubin 0.5 AST 23 ALT 44 Alkaline Phosphatase 72 Troponin I < 0.015 NT-Pro-B Natriuret Pep Total Protein 6.8 Albumin 3.7 Globulin 3.1 Albumin/Globulin Ratio 1.2 Triglycerides 159 H Cholesterol 139 LDL Cholesterol, Calc 39 VLDL Cholesterol, Calc 32 HDL Cholesterol 68 Cholesterol/HDL Ratio 2 Lipase TSH Diagnostic Findings Telemetry personally reviewed: Sinus rhythm. No arrhythmia. ECGs personally reviewed: ECG 11/15/2019 at 2300: NSR at 62 bpm. ECG 11/15/2019 at 5:54 p.m.: Sinus rhythm 67 bpm ECG 11/15/2019 at 2:45 p.m.: NSR 66 bpm ECG 11/16/2019 at 5:01 a.m.: Sinus bradycardia 55 bpm. Echo personally reviewed: Echo 11/16/2019: Normal LV size, wall motion, systolic function. EF 55-60% no LVH. No significant diastolic dysfunction. Mild MR. Brain MRI 11/15/2019: No acute intracranial abnormality. Chronic microvascular ischemic disease. Medications Administered Current Inpatient Medications Acetaminophen (Tylenol) 650 mg PO Q4H PRN PRN Reason: Pain or Fever Stop: 12/15/19 20:43 Al Hydrox/Mg Hydrox/Simethicone (Maalox) 15 ml PO Q4H PRN PRN Reason: Dyspepsia Stop: 12/15/19 20:43 Aspirin (Ecotrin) 325 mg PO [facility] Stop: 12/15/19 20:43 Last Admin: 11/16/19 08:13 Dose: 325 mg Documented by: Atorvastatin Calcium (Lipitor) 80 mg PO HS [facility] Stop: 12/15/19 20:59 Last Admin: 11/15/19 22:40 Dose: 80 mg Documented by: Clopidogrel Bisulfate (Plavix) 75 mg PO QAM [facility] Stop: 12/15/19 20:43 Last Admin: 11/16/19 08:13 Dose: 75 mg Documented by: Enoxaparin Sodium (Lovenox) 40 mg SQ Q24H [facility] Stop: 12/15/19 20:43 Last Admin: 11/15/19 22:39 Dose: 40 mg Documented by: Fish Oil (Harrison-3 (Purified Fish Oil)) 1 gm PO BID [facility] Stop: 12/16/19 08:59 Furosemide (Lasix) 20 mg PO QAM [facility] Stop: 12/16/19 08:59 Last Admin: 11/16/19 08:13 Dose: 20 mg Documented by: Isosorbide Mononitrate (Imdur Extended Rel) 60 mg PO QAM [facility] Stop: 12/16/19 08:59 Last Admin: 11/16/19 08:13 Dose: 60 mg Documented by: Magnesium Hydroxide (Milk Of Magnesia) 30 ml PO Q12H PRN PRN Reason: Constipation Stop: 12/15/19 20:43 Metoprolol Tartrate (Lopressor) 25 mg PO BID [facility] Stop: 12/15/19 20:59 Last Admin: 11/16/19 08:14 Dose: 25 mg Documented by: Morphine Sulfate (Morphine Sulfate) 2 mg IV Q30M PRN PRN Reason: Chest Pain Stop: 11/29/19 20:43 Nitroglycerin (Nitrostat) 0.4 mg SL Q5M PRN PRN Reason: Chest Pain Stop: 12/15/19 20:43 Nitroglycerin (Nitro-Bid 2%) 1 inch EXT Q6H [facility] Stop: 12/15/19 21:59 Last Admin: 11/16/19 04:12 Dose: 1 inch Documented by: Ondansetron HCl (Zofran) 4 mg IV Q6H PRN PRN Reason: Nausea Stop: 12/15/19 20:43 Polyethylene Glycol (Miralax Powder Packet) 17 gm PO DAILY PRN PRN Reason: Constipation Stop: 12/15/19 20:43 PG Care Time/CCT Total # of Minutes Spent Total Time Spent with Patient: Total time spent is greater than 50% in coordination of care (as documented) at patient's floor/unit and/or counseling patient: Coding Level of Care Code 30715 Office/OBS Consult Lvl 4 Diagnoses Chest pain R07.9 S/P coronary artery stent placement Z95.5 SOB (shortness of breath) R06.02 CAD (coronary artery disease) I25.10 Coronary Disease-Associated Artery/Lesion type: [place] artery [place] vs. transplanted heart: [place] heart Associated angina: angina presence unspecified (1) CAD (coronary artery disease) Coronary Disease-Associated Artery/Lesion type: [place] artery [place] vs. transplanted heart: [place] heart Associated angina: angina presence unspecified Qualified Code(s): I25.10 - Atherosclerotic heart disease of [place] coronary artery without angina pectoris
--- NOTE | 2019-11-16 09:29 | XCELERA ---
[id number] [id number]
--- NOTE | 2019-11-16 12:37 | XRay Report ---
XR lumbar spine 2-3V CLINICAL HISTORY: lower back pain COMPARISON STUDY: None. FINDINGS: No fracture or subluxation. Moderate disc space narrowing and endplate osteophytes at L5-S1 . There is also moderate facet degenerative changes at this level. There appears to be bilateral L5 s pondylolysis. No evidence for spondylolisthesis. The remaining disc spaces are preserved. Tiny endpla te osteophytes seen throughout the lumbar spine. The sacrum is intact. IMPRESSION: 1. Moderate degenerative changes at L5-S1. 2. No fracture or subluxation. 3. Probable bilateral L5 spondylolysis. ACT 112: Negative or not required by law. Electronically signed by: Jose Swanson M.D. 11/16/2019 12:36 PM
[2019-11-16] MEDS ORDERED: PANTOprazole 40 MG TAB PO SCH (13:15)
--- NOTE | 2019-11-16 18:18 | Discharge Summary ---
Date of Service November 16, 2019 Admission HPI Per Admitting Provider pendingThe patient is a 54 years old female with past medical history of of [place] with [address] [facility], coronary artery disease, cardiomyopathy, dyslipidemia, GERD, embolic stroke, who presents to the emergency room after starting to have a chest pain for approximately 20 to 30 minutes today around 2 PM. Patient describes her chest pain as crushing and located only in her chest without moving anywhere. Patient reports that she has some floaters in her vision around 2 PM and that went away. Patient reports in May 2019 she had first pericarditis and 2 weeks after that she developed myocardial infarction. Her LAD was 90% occluded and she was emergently catheterized and placed 1 stent. Patient have Raynolds syndrome. Patient denies any sick contact recently. Patient denies fever, chills, headache, shortness of breath, abdominal pain, frequency, urgency, syncope or near syncope. Patient denies hematuria, melena, hematemesis or hematochezia. Patient said that in May she was started on colchicine and she continued therapy for 5 months for pericarditis. She was also for 2 weeks on aspirin 325 mg twice daily for pericarditis. After stent was placed she is taking aspirin 81 and Plavix 75 mg daily along with atorvastatin 80 mg p.o. nightly. During the catheterization of her heart in May at [facility] patient had several small embolic strokes. Her function was regained again. Patient denies that she ever had any neurological deficit from the small embolic strokes. Patient was also seen 4 days ago on November 11 in the congestive heart failure clinic. BNP at that time was 43. At that time patient was recommended to continue taking Lasix 40 mg every other day and 20 mg. She was also recommended to have exercise stress echocardiogram which was scheduled for tomorrow and to have echocardiogram repeated. Concern is based on the patient history that she was gaining weight approximately 2 to 3 pounds overnight and or 5 pounds in 1 week. They recommended her low-sodium diet and less than 2000 mg/day and to limit fluid intake. Patient states that she was placed on furosemide 20 mg p.o. every morning and 40 mg p.o. every morning every other day for congestive heart failure. Patient states that she coughs up frothy sputum which is clear quite often. Patient sees Dr. Robles [facility] general counsel. EKG is reviewed: Shows normal sinus rhythm with ventricular rate of 73 OH interval 154 and QT interval 416. No ST segment elevation or depression. Labs are reviewed WBC 7.77, hemoglobin 13.6, hematocrit 39.7, platelets 247, PT 10.3, INR 1, APTT 24.4, sodium 140, potassium 3.5, chloride 102, carbon dioxide 32, anion gap 6, BUN 17, creatinine 0.84, GFR 79.3, calcium 8.9, magnesium, BNP pending C-reactive protein 0.43, total protein 7.7, albumin 4.4, globulin 3.3, TSH pending. Cholesterol from September 2019 triglycerides 150, cholesterol 154, LDL 60, VLDL 30, HDL 64, cholesterol HDL ratio 2. Chest x-rays shows no active disease in the chest. CT of the head shows: There is no hemorrhage, mass-effect or evidence of acute territorial ischemia by CT criteria. A decision was made to admit patient at [facility] on telemetry for observation and for chest pain and to rule acute coronary syndrome and or transient ischemic attack or stroke. Principal Diagnosis none Discharge Exam Constitutional WD/WN, vitals as above well developed, well nourished and + obese Eyes PERRL, conjunctivae normal, anicteric sclerae ENMT external ear and nose normal, oropharynx normal Neck trachea midline, no thyromegaly Respiratory normal respiratory effort, lungs clear to auscultation Cardiovascular RRR, no murmur, no edema Gastrointestinal (Abdomen) normal bowel sounds, soft, nontender, no hepatosplenomegaly Musculoskeletal no cyanosis or clubbing, extremities motor strength 5/5 Skin no rashes, warm and dry Neurologic patellar DTR's 2+ bilat, sensation intact Psychiatric A+Ox3, euthymic affect Lymphatic no cervical or axillary lymphadenopathy Discharge Data Allergies Allergy/AdvReac Type Severity Reaction Status Date / Time pineapple Allergy Severe throat Verified 11/15/19 15:20 swells up naproxen [From Aleve] Allergy Mild throat Verified 11/15/19 15:20 swells/hives Penicillins Allergy Mild Hives Verified 11/15/19 15:20 Consultations 11/15/19 17:12 ED Decision to Admit Stat 11/15/19 20:44 Consult Cardiology Routine Ordered Studies 11/15/19 15:22 CT head/brain wo con Stat 11/15/19 18:41 MR brain wo con Stat 11/15/19 18:42 US carotid doppler BI Stat Hospital Course (1) Chest pain: Continue admit to [facility] on telemetry. Troponin x3 all negative, Monitor electrolytes and replenish. TTE: Normal left ventricular size and systolic function. EF 55 to 60%. No r egional wall motion abnormality. No left ventricular hypertrophy. No significant diastolic dysfunction. Mild mitral regurgitation. No significant change from limited echo June 19, 2019. Appreciate cardiology recommendations Normal exercise echocardiogram without evidence of inducible ischemia. Nitroglycerin paste or nitroglycerin 0.4 mf sublingual for unstable angina. Given aspirin 325 mg x 1. Elevated triglycerides started fish oil twice daily p.o. Continue home medicine aspirin 81 mg p.o. every morning. Started PPI for atypical chest pain possibly due to GERD. Atorvastatin 80 D milligrams p.o. nightly, clopidogrel 75 mg p.o. every morning. Coenzyme 1030 mg p.o. nightly. Furosemide 20 mg p.o. every morning/40 mg every other Continue isosorbide mononitrate 60 mg p.o. every morning. Continue Krill oil. Continue metoprolol tartrate 25 mg p.o. twice daily. DVT prophylaxis Lovenox 40 mg subcu 2 daily. Consult cardiology Full code (2) CAD (coronary artery disease): As the above (3) Transient ischemic attack: Patient does not have any neurological deficit at this time. 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 No acute findings on MRI of the brain and ultrasound of the carotids bilateral. Issue resolved (4) Unstable angina: As the above, resolved (5) History of myocardial infarction: Continue management as the above (6) Hyperlipidemia: Reviewed lipid panel. Elevated triglycerides. HDL cholesterol only 39. Continue atorvastatin 80 mg p.o. nightly Started fish oil for elevated triglycerides of 159. (7) GERD (gastroesophageal reflux disease): Patient is not on any medicine for GERD. Patient switched from IV famotidine to pantoprazole 40 mg p.o. daily. 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 Cardiology recommended noncardiac evaluation such as further pulmonary evaluation. She can continue on Lasix 20 mg p.o. daily . Her BNP is normal x2 . There is no evidence of congestive heart failure. Patient recommended to replenish magnesium and potassium daily since she is on Lasix. There is no volume overload. (10) Elevated C-reactive protein (CRP): Mildly elevated CRP 0.43. Patient referred to rheumatology for further evaluation and treatment. (11) Family history of stroke: Patient states that she has strong family history of females dying in early age of stroke or becoming disabled. Patient was requesting to be on anticoagulation. The case was discussed with Dr. Rivero and she recommended to do hypercoagulation evaluation. Those labs are pending except for Antithrombin 3 which did not draw since patient is on Lovenox for prophylaxis of DVT. Patient was recommended to do it with her PCP in 7 to 10 days when she is off of Lovenox Total Time Total Time Spent Total Time Spent (In Minutes): over 30 min Discharge Plan Discharge Items Patient Disposition: Home - Self-Care Reason For Visit: CHEST PAIN Discharge Diagnosis: atypical chest pain Condition on Discharge: Good Health Concerns: Mildly Elevated CPR-0.43 XR lumbar spine 2-3V CLINICAL HISTORY: lower back pain COMPARISON STUDY: None. FINDINGS: No fracture or subluxation. Moderate disc space narrowing and endplate osteophytes at L5-S1. There is also moderate facet degenerative changes at this level. There appears to be bilateral L5 spondylolysis. No evidence for spon dylolisthesis. The remaining disc spaces are preserved. Tiny endplate osteophytes seen throughout the lumbar spine. The sacrum is intact. IMPRESSION: 1. Moderate degenerative changes at L5-S1. 2. No fracture or subluxation. 3. Probable bilateral L5 spondylolysis. Follow up with Dr. Levy Cordova MD as needed if pain in lower backs worsens. Appointment Activity: Resume your previous activity Lifting: Gradually increase as tolerated Bathing: No limitations Sexual Activity: When tolerated Driving/Machine Use: No limitations Non-emergency contact: Primary Care Provider Call non-emergency contact if: you have any medication questions, your symptoms worsen, your pain is not controlled, your pain is worsening, your pain is unusual for you, your pain is concerning for you, you have a fever and your temperature is above 101 Follow-up/Referrals: Luis Fernando Arenas, [Primary Care Provider] - 11/23/19 9:15 am (Please, follow up with Dr. Luis Fernando Arenas on SaturdayNovember 23 at 9:15 am. *If you need to change this appointment, call the office at [phone].) Vikki Lam PA-C [Physician Refrigeration Houseman] - 11/19/19 3:30 pm (Please, follow up at [facility] Office / [facility]F Clinic with Laney Lam PA-C on November 19 at 3:30 pm. *If you need to change this appointment, call the office at [phone].) Ian Shannon, [Outside Practitioners] - 01/01/20 8:40 am (Please, follow up at [facility] with Dr. Shahram Shannon (seat cover cutter) on December 31 at 8:40 am. *You will be receiving a packet of info in the mail and some forms to complete, prior to your appointment. If you have any questions, call the office at [phone].) Diet: Heart Healthy Addtl Attending Provider Instructions: Please follow-up with PCP within 7 days. At your next visit with PCP do the following labs:antithrombin III activity, Lupus PTT Scr Rflx Hex Phase.If results abnormal your PCP should consult Dr. Rivero. Continue all of your current medication. We will start you on fish oil 1 g p.o. twice daily and pantoprazole 40 mg p.o. every morning.Follow up with Cardiology, Rheumatology as well. Pending Studies at Discharge: Yes Studies:: Hypercoagulability eval Stand-Alone Forms: My [facility], Smoking Cessation Medications and DC Order Prescriptions: New pantoprazole 40 mg Tablet,Delayed Release (Dr/Ec) 40 mg PO QAM Qty: 30 RF: 0 Fish Oil 340-1,000 mg Capsule 1 g PO BID Qty: 60 RF: 0 Continued metoprolol tartrate 25 mg tablet 25 mg PO BID Qty: 60 RF: 5 isosorbide mononitrate 30 mg tablet extended release 24 hr 60 mg PO QAM RF: 0 krill oil 500 mg Capsule 0 mg PO QAM RF: 0 furosemide 40 mg tablet 20 mg PO QAM RF: 0 aspirin 81 mg tablet,delayed release (DR/EC) 81 mg PO QAM RF: 0 atorvastatin 80 mg tablet 80 mg PO HS RF: 0 clopidogrel 75 mg tablet 75 mg PO QAM RF: 0 nitroglycerin 0.4 mg tablet, sublingual 0.4 mg sublingual DIRECTED PRN (Reason: Chest Pain) RF: 0 coenzyme Q10 [CoQ-10] 30 mg Capsule 30 mg PO HS RF: 0 Discharge Orders: Discharge Order (Routine); Ordered 11/16/19 Ordered By: Padmini Thomas Admission Data Admit Date/Time: 11/15/19 17:54 Attending Provider: Padmini Thomas Admit Provider: Padmini Thomas Primary Care Provider: Luis Fernando Arenas Other Providers: Padmini Thomas ; Michael Stroud Other Interventions: Discharge Summary Assessment (RN) Last Done: 11/16/19 16:40 DC Date/Time DO NOT enter until pt leaves facility: 11/16/19 18:09 Coding Level of Care Code D/C Day Management >30 mins Diagnoses Chest pain R07.9 CAD (coronary artery disease) I25.10 Coronary Disease-Associated Artery/Lesion type: [place] artery [place] vs. transplanted heart: [place] heart Associated angina: angina presence unspecified Transient ischemic attack G45.9 Unstable angina I20.0 History of myocardial infarction I25.2 Hyperlipidemia E78.5 GERD (gastroesophageal reflux disease) K21.9 Esophagitis presence: esophagitis presence not specified Smith syndrome M35.8 Congestive heart failure I50.9 Elevated C-reactive protein (CRP) R79.82 Family history of stroke Z82.3
--- NOTE | 2019-11-16 19:52 | Electrocardiogram Report ---
Test Reason : Blood Pressure : / mmHG Vent. Rate : 067 BPM Atrial Rate : 067 BPM P-R Int : 164 ms QRS Dur : 094 ms QT Int : 424 ms P-R-T Axes : 073 075 063 degrees QTc Int : 448 ms Normal sinus rhythm Normal ECG When compared with ECG of 15-NOV-2019 16:41, (unconfirmed) Nonspecific T wave abnormality no longer evident in Anterior leads Confirmed by Jerry Stroud ([id number]) on 11/16/2019 7:52:27 PM Referred By: Michael Stroud Confirmed By:Feng Stroud
--- NOTE | 2019-11-16 19:57 | Electrocardiogram Report ---
Test Reason : Blood Pressure : / mmHG Vent. Rate : 062 BPM Atrial Rate : 062 BPM P-R Int : 160 ms QRS Dur : 096 ms QT Int : 420 ms P-R-T Axes : 078 090 064 degrees QTc Int : 426 ms Normal sinus rhythm Rightward axis Low voltage QRS Borderline ECG When compared with ECG of 15-NOV-2019 17:54, (unconfirmed) No significant change was found Confirmed by Jerry Stroud ([id number]) on 11/16/2019 7:56:47 PM Referred By: Michael Stroud Confirmed By:Feng Stroud
--- NOTE | 2019-11-16 19:59 | Electrocardiogram Report ---
Test Reason : Blood Pressure : / mmHG Vent. Rate : 055 BPM Atrial Rate : 055 BPM P-R Int : 162 ms QRS Dur : 098 ms QT Int : 446 ms P-R-T Axes : 075 083 062 degrees QTc Int : 426 ms Sinus bradycardia Otherwise normal ECG When compared with ECG of 15-NOV-2019 23:00, (unconfirmed) No significant change was found Confirmed by Jerry Stroud ([id number]) on 11/16/2019 7:58:39 PM Referred By: Michael Stroud Confirmed By:Feng Stroud
--- NOTE | 2019-11-17 10:31 | XCELERA ---
[id number]
[2019-11-19 18:14] LABS: Anti Cardiolipin Ab IgG <14 GPL; Anti Cardiolipin Ab IgM <12 MPL; Anti-Cardiolipin Ab IgA <11 APL; B2 Glycoprotein IgA <9 SAU (<=20); B2 Glycoprotein IgG <9 SGU (<=20); B2 Glycoprotein IgM <9 SMU (<=20); Protein S Functional(Activity) 77 % (60-140)
== END 2019-11-16 18:09 | disposition home or self-care (01) ==
LOC: ED 14:27 → 2N 14:27